=== PATIENT | female | born 1940 | race Caucasian/White ===

== ENCOUNTER 2017-12-13 08:11 | Emergency (ER) | payer MEDICARE, MEDICAID ==
[2017-12-13 08:18] VITALS: RESP 18
[2017-12-13] MEDS ORDERED: Simethicone 80 mg Chewtab PO STA (08:45)
[2017-12-13 09:09] LABS: SQUAMOUS EPITHIAL 1 /hpf (0-5); URINE BILIRUBIN NEGATIVE (NEGATIVE); URINE BLOOD NEGATIVE (NEGATIVE); URINE COLOR Yellow (YELLOW); URINE GLUCOSE (UA) NORMAL (Normal); URINE LEUKOCYTE ESTERASE 1+ Leu/uL (Negative); URINE NITRATE NEGATIVE (NEGATIVE); URINE PROTEIN NEGATIVE (NEGATIVE); URINE UROBILINOGEN NORMAL mg/dL (0.2-1.0)
[2017-12-13 09:10] LABS: BASO % 0.7 % (0.0-2.0); EOS # 0.2 K/uL (0.0-0.7); EOS % 2.8 % (0.0-4.0); HEMOGLOBIN 13.8 g/dL (11.0-16.0); LYMPH # 1.6 K/uL (1.0-4.3); MEAN CELL VOLUME 90.7 fL (81.0-99.0); MEAN CORPUSCULAR HEMOGLOBIN 31.3 pg (27.0-31.0); MEAN CORPUSCULAR HGB CONC 34.5 g/dL (33.0-37.0); MEAN PLATELET VOLUME 8.1 fL (7.2-11.7); MONO # 0.8 K/uL (0.0-0.8); NEUT # 4.3 K/uL (1.8-7.0); NEUT % 62.5 % (50.0-75.0); RBC 4.42 Mil/uL (3.80-5.20); RED CELL DISTRIBUTION WIDTH 13.6 % (11.5-14.5); WHITE BLOOD COUNT 6.8 K/uL (4.8-10.8)
[2017-12-13 09:10] LABS: URINE CLARITY SLHAZY (Clear)
--- NOTE | 2017-12-13 09:15 | C.PDOC ---
History Of Present Illness Patient presents to ED c/o epigastric abdominal pain, bloating and gas pain x 3 days. She has tried taking pepto bismol and mylanta without relief. She denies vomiting/diarrhea, fever, dysuria/hematuria, chest pain, SOB. Patient does admit to constipation, states she had small BM this morning, last good BM was 3 days ago. Time Seen by Provider: 12/13/17 08:16 Chief Complaint (Nursing): Abdominal Pain History Per: Patient History/Exam Limitations: no limitations Onset/Duration Of Symptoms: Days (3) Current Symptoms Are (Timing): Still Present Severity: Mild Location Of Pain/Discomfort: Epigastric Quality Of Discomfort: "Pain" Associated Symptoms: Constipation Past Medical History Reviewed: Historical Data, Nursing Documentation, Vital Signs Vital Signs: Last Vital Signs Temp 98.1 F 12/13/17 11:26 Pulse 84 12/13/17 11:26 Resp 18 12/13/17 11:26 BP 166/74 H 12/13/17 11:26 Pulse Ox 99 12/13/17 11:26 - Medical History PMH: Arthritis, HTN, Hyperlipidemia, Hypothyroidism Surgical History: Cholecystectomy Family History: States: No Known Family Hx - Social History Hx Alcohol Use: No Hx Substance Use: No - Immunization History Hx Tetanus Toxoid Vaccination: No Hx Influenza Vaccination: Yes Hx Pneumococcal Vaccination: No Review Of Systems Except As Marked, All Systems Reviewed And Found Negative. Constitutional: Negative for: Fever, Chills Cardiovascular: Negative for: Chest Pain Respiratory: Negative for: Cough, Shortness of Breath Gastrointestinal: Positive for: Abdominal Pain. Negative for: Nausea, Vomiting , Diarrhea Genitourinary: Negative for: Dysuria, Hematuria Physical Exam - Physical Exam Appears: Well, Non-toxic, No Acute Distress Oral Mucosa: Moist Cardiovascular: Rhythm Regular Respiratory: Normal Breath Sounds, No Rales, No Rhonchi, No Wheezing Gastrointestinal/Abdominal: Bowel Sounds, Soft, Tenderness (mild diffuse TTP, greatest at epigastric area, (-) Beebe's, (-) McBurney's), Other (obese abdomen ) Back: Normal Inspection, No CVA Tenderness Neurological/Psych: Oriented x3 ED Course And Treatment - Laboratory Results Result Diagrams: 12/13/17 09:04 12/13/17 09:04 O2 Sat by Pulse Oximetry: 97 (RA) Pulse Ox Interpretation: Normal Progress Note: Blood work, UA, obstructive series ordered and reviewed. Patient given IV Pepcid, PO simethicone, PO Magnesium citrate. Disposition Counseled Patient/Family Regarding: Studies Performed, Diagnosis, Need For Followup, Rx Given - Disposition Referrals: Kaiden Allred MD [Staff Provider] - Ramesh Murray [Staff Provider] - Disposition: HOME/ ROUTINE Disposition Time: 11:20 Condition: STABLE Additional Instructions: SEGUIMIENTO CON HARDIN MDICO EN 1-2 BAEZA SI LOS SNTOMAS CONTINAN, CONSULTE GASTROENTERLOGO DENTRO DE 1 SEMANA USE MEDICAMENTOS SEGN LO INDICADO KENTRELL ABUNDANTE AGUA E INCREMENTA LA FIBRA EN HARDIN DIETA REGRESE AL NOAM DE EMERGENCIA SI LOS SNTOMAS EMPEORAN Prescriptions: Ciprofloxacin [Cipro] 1 tab PO BID #14 tab Docusate [Colace] 100 mg PO DAILY #30 cap Pantoprazole [Protonix EC Tab] 20 mg PO DAILY #30 ect Simethicone [Anti-Gas] 180 mg PO Q6 PRN #30 capsule PRN Reason: gas Instructions: Urinary Tract Infection in Women (ED), Gas and Bloating (ED) Forms: [facility] (Yi) Print Language: URDU - Clinical Impression Clinical Impression: Gas pain, Epigastric pain, Constipation, UTI (urinary tract infection)
[2017-12-13 09:20] LABS: ALB/GLOB RATIO 1.1 (1.0-2.1); ALT/SGPT 23 U/L (9-52); AST/SGOT 30 U/L (14-36); BLOOD UREA NITROGEN 13 mg/dL (7-17); CALCIUM 9.1 mg/dl (8.6-10.4); GFR AFRICAN-AMERICAN > 60; GFR NON-AFRICAN AMERICAN > 60; LIPASE 185 U/L (23-300)
[2017-12-13] MEDS ORDERED: Magnesium Citrate Oral SOL (300 ml) PO ONE (09:22)
[2017-12-13] MEDS ORDERED: Magnesium Citrate Oral SOL (300 ml) ONE (09:48)
--- NOTE | 2017-12-13 09:50 | RAD ---
PROCEDURE: Radiographs of the chest and abdomen (obstructive series) HISTORY: abd pain, constipation COMPARISON: Chest x-ray performed 10/03/16 TECHNIQUE: AP radiograph of the chest, with upright and supine radiographs of the abdomen. FINDINGS: Examination limited by habitus. CHEST: Cardiomegaly. Biapical pleural thickening. Prominent interstitial markings may be chronic. Mild pulmonary venous congestion is not excluded. No significant pleural effusion or definite pneumothorax identified. ABDOMEN AND PELVIS: Right upper quadrant surgical clips. Nonobstructive bowel gas pattern. No definite free air. Mild constipation. Pelvic calcifications, likely phleboliths. Degenerative changes of the spine. IMPRESSION: Cardiomegaly. Biapical pleural thickening. Prominent interstitial marking may be chronic. Pulmonary venous congestion is not excluded. Correlate clinically. Mild constipation. Right upper quadrant surgical clips.
[2017-12-13 11:27] VITALS: BP 166/74; PULSE 84; TEMP 98.1
[2017-12-13 13:59] VITALS: O2SAT 97
== END 2017-12-13 11:32 | disposition home or self-care (01) ==
LOC: C.ER 08:11
DX: K59.00 Constipation, unspecified (principal); N39.0 Urinary tract infection, site not specified; R10.13 Epigastric pain; R14.1 Gas pain

== ENCOUNTER 2017-12-25 09:51 | Emergency (ER) | payer MEDICARE, MEDICAID ==
--- NOTE | 2017-12-25 10:59 | C.PDOC ---
History Of Present Illness 77 yr old female presents to the ER for evaluation of abdominal pain for the past 5 days, associated with nausea. Patient denies fever, chills, chest pain, SOB, vomiting, diarrhea, dysuria or back pain. Time Seen by Provider: 12/25/17 10:15 Chief Complaint (Nursing): Abdominal Pain History Per: Patient History/Exam Limitations: no limitations Onset/Duration Of Symptoms: Days (5) Past Medical History Reviewed: Historical Data, Nursing Documentation, Vital Signs Vital Signs: Last Vital Signs Temp 97.6 F 12/25/17 10:30 Pulse 66 12/25/17 13:50 Resp 18 12/25/17 13:50 BP 169/79 H 12/25/17 13:50 Pulse Ox 96 12/25/17 14:55 - Medical History PMH: Arthritis, HTN, Hyperlipidemia, Hypothyroidism Surgical History: Cholecystectomy Family History: States: No Known Family Hx - Social History Hx Alcohol Use: No Hx Substance Use: No - Immunization History Hx Tetanus Toxoid Vaccination: No Hx Influenza Vaccination: Yes Hx Pneumococcal Vaccination: No Review Of Systems Except As Marked, All Systems Reviewed And Found Negative. Cardiovascular: Negative for: Chest Pain Gastrointestinal: Positive for: Nausea, Abdominal Pain. Negative for: Vomiting , Diarrhea Genitourinary: Negative for: Dysuria Musculoskeletal: Negative for: Back Pain Physical Exam - Physical Exam Appears: Non-toxic, No Acute Distress Skin: Warm, Dry, No Rash Head: Atraumatic, Normacephalic Eye(s): bilateral: Normal Inspection, PERRL, EOMI Oral Mucosa: Moist Cardiovascular: Rhythm Regular, No Murmur Respiratory: Normal Breath Sounds, No Rales, No Rhonchi, No Stridor, No Wheezing Gastrointestinal/Abdominal: Soft, Tenderness (left lateral mid quaderant tenderness), No Mass, No Guarding, No Rebound Extremity: Normal ROM, No Swelling ED Course And Treatment - Laboratory Results Result Diagrams: 12/25/17 11:33 12/25/17 11:33 O2 Sat by Pulse Oximetry: 96 (RA) Pulse Ox Interpretation: Normal - CT Scan/US CT - Abd & Pelvis Other Rad Studies (CT/US): Read By Radiologist, Radiology Report Reviewed CT/US Interpretation: PROCEDURE: CT scan abdomen pelvis dated 12/25/2017. HISTORY: Abdominal pain. COMPARISON: None. TECHNIQUE: Contiguous helical/ transaxial images both dated of the abdomen and pelvis performed following intravenous injection of approximately 100 cc Visipaque 320. Coronal and Sagittal reformats generated. Radiation dose: Total exam DLP = 1147.55 mGy- cm. This CT exam was performed using one or more of the following dose reduction techniques: Automated exposure control, adjustment of the mA and/or kV according to patient size, and/or use of iterative reconstruction technique. FINDINGS: LOWER THORAX: Mild passive/dependent type atelectasis both posterior lower lung reece. No focal consolidation effusion or basilar pneumothorax. Heart size is mildly enlarged. . Tiny hiatal hernia. LIVER: Liver exhibits normal size. Mild diffuse fatty hepatic infiltration. Portal and splenic veins are patent. GALLBLADDER AND BILE DUCTS: The gallbladder has been surgically resected with metallic clips in gallbladder fossa. PANCREAS: Pancreas is somewhat atrophic and fatty replaced. SPLEEN: Unremarkable. No splenomegaly. ADRENALS: Unremarkable. KIDNEYS AND URETERS: Kidneys demonstrate relatively symmetric size. No evidence of nephrolithiasis or hydronephrosis. BLADDER: Urinary bladder incompletely distended. No evidence of intraluminal urinary bladder calculi. REPRODUCTIVE: Uterus appears grossly unremarkable. APPENDIX: What is felt to represent a normal but short appendix best seen on axial image number [id number]. BOWEL: Evaluation of the bowel is limited due to the lack of oral contrast material. Stomach is incompletely distended. There appears to be submucosal fat deposition within the gastric wall. Visualized loops of small bowel exhibit normal contour and caliber. No evidence of acute mechanical small bowel obstruction. No definitive evidence of mural wall thickening of the colon. The. PERITONEUM: Unremarkable. No fluid collection. No free air. Small fat containing umbilical hernia. . LYMPH NODES: Unremarkable. No enlarged lymph nodes. VASCULATURE: Partially calcified atherosclerotic plaque seen along the abdominal aorta and proximal iliac arteries. . Plaque changes on in follow-up the origins of the celiac axis and SMA. BONES: Multilevel degenerative spondylosis of the lower thoracic and lumbar spine. No acute compression fractures. OTHER FINDINGS: None. IMPRESSION: No acute intra abdominal pathology. Mild fatty hepatic infiltration. Status post cholecystectomy. See above discussion for additional details and findings. Medical Decision Making Medical Decision Making: IMPRESSION: Abdominal pain PLAN: * CT - Abd & Pelvis * CXR * EKG * Troponin * CBC * CMP * BNP * Protonix IVP * Toradol IVP * Zofran IVP NOTE: * Patient reports abdominal pain resolved. * Patient advised to follow up with Dr. Pacheco for further follow up. Disposition Counseled Patient/Family Regarding: Studies Performed, Diagnosis, Need For Followup, Rx Given - Disposition Referrals: Last Pacheco MD [Staff Provider] - [facility] [Outside] Disposition: HOME/ ROUTINE Disposition Time: 14:52 Condition: IMPROVED Additional Instructions: follow u with Dr. Pacheco in 2 days call to make an appointment take medications as needed return to ER if symptoms worsens or progress Prescriptions: Famotidine [Pepcid] 20 mg PO BID #20 tab Naproxen [Naprosyn] 500 mg PO BID PRN #16 tab PRN Reason: Pain, Moderate (4-7) Ondansetron ODT [Zofran ODT] 4 mg PO TID PRN #12 odt PRN Reason: Nausea/Vomiting Instructions: Abdominal Pain (ED) Forms: [facility] (Romanian), Gen Discharge Inst Korean, [employer] (Korean) Print Language: BENGALI - Clinical Impression Clinical Impression: Abdominal pain - Scribe Statement The provider has reviewed the documentation as recorded by the Lola Paredes Provider Attestation: All medical record entries made by the Lola were at my direction and personally dictated by me. I have reviewed the chart and agree that the record accurately reflects my personal performance of the history, physical exam, medical decision making, and the department course for this patient. I have also personally directed, reviewed, and agree with the discharge instructions and disposition.
[2017-12-25 11:39] LABS: BASO % 0.7 % (0.0-2.0); EOS # 0.1 K/uL (0.0-0.7); EOS % 1.2 % (0.0-4.0); HEMOGLOBIN 13.8 g/dL (11.0-16.0); LYMPH # 1.4 K/uL (1.0-4.3); MEAN CELL VOLUME 90.2 fL (81.0-99.0); MEAN CORPUSCULAR HEMOGLOBIN 31.5 pg (27.0-31.0); MEAN CORPUSCULAR HGB CONC 34.9 g/dL (33.0-37.0); MEAN PLATELET VOLUME 7.8 fL (7.2-11.7); MONO # 0.6 K/uL (0.0-0.8); MONO % 10.2 % (0.0-10.0); NEUT # 3.5 K/uL (1.8-7.0); NEUT % 62.9 % (50.0-75.0); RBC 4.38 Mil/uL (3.80-5.20); RED CELL DISTRIBUTION WIDTH 13.6 % (11.5-14.5); WHITE BLOOD COUNT 5.6 K/uL (4.8-10.8)
[2017-12-25 11:45] LABS: SQUAMOUS EPITHIAL < 1 /hpf (0-5); URINE BACTERIA RARE (<OCC); URINE BILIRUBIN NEGATIVE (NEGATIVE); URINE BLOOD NEGATIVE (NEGATIVE); URINE CLARITY Clear (Clear); URINE COLOR Yellow (YELLOW); URINE GLUCOSE (UA) NORMAL (Normal); URINE LEUKOCYTE ESTERASE NEG Leu/uL (Negative); URINE NITRATE NEGATIVE (NEGATIVE); URINE PROTEIN NEGATIVE (NEGATIVE); URINE UROBILINOGEN NORMAL mg/dL (0.2-1.0)
[2017-12-25 11:51] LABS: ALB/GLOB RATIO 1.1 (1.0-2.1); ALBUMIN 4.1 g/dL (3.5-5.0); ALT/SGPT 23 U/L (9-52); AST/SGOT 31 U/L (14-36); BLOOD UREA NITROGEN 12 mg/dL (7-17); CALCIUM 9.8 mg/dl (8.6-10.4); GFR AFRICAN-AMERICAN > 60; GFR NON-AFRICAN AMERICAN > 60; LIPASE 141 U/L (23-300)
[2017-12-25 12:05] LABS: B-TYPE NATRIURETIC PEPTIDE 134 pg/mL (0-900)
[2017-12-25] MEDS ORDERED: Iodixanol 320 MG/ML 100 ML BOTTLE IV ONE (12:17)
[2017-12-25 13:51] VITALS: RESP 18
--- NOTE | 2017-12-25 14:36 | CT ---
PROCEDURE: CT scan abdomen pelvis dated 12/25/2017. HISTORY: Abdominal pain COMPARISON: None. TECHNIQUE: Contiguous helical/transaxial images both dated of the abdomen and pelvis performed following intravenous injection of approximately 100 cc Visipaque 320. Coronal and Sagittal reformats generated. Radiation dose: Total exam DLP = 1147.55 mGy-cm. This CT exam was performed using one or more of the following dose reduction techniques: Automated exposure control, adjustment of the mA and/or kV according to patient size, and/or use of iterative reconstruction technique. FINDINGS: LOWER THORAX: Mild passive/dependent type atelectasis both posterior lower lung reece. No focal consolidation effusion or basilar pneumothorax. Heart size is mildly enlarged. . Tiny hiatal hernia. LIVER: Liver exhibits normal size. Mild diffuse fatty hepatic infiltration. Portal and splenic veins are patent. GALLBLADDER AND BILE DUCTS: The gallbladder has been surgically resected with metallic clips in gallbladder fossa. PANCREAS: Pancreas is somewhat atrophic and fatty replaced. SPLEEN: Unremarkable. No splenomegaly. ADRENALS: Unremarkable. KIDNEYS AND URETERS: Kidneys demonstrate relatively symmetric size. No evidence of nephrolithiasis or hydronephrosis. BLADDER: Urinary bladder incompletely distended. No evidence of intraluminal urinary bladder calculi. REPRODUCTIVE: Uterus appears grossly unremarkable. APPENDIX: What is felt to represent a normal but short appendix best seen on axial image number [id number]. BOWEL: Evaluation of the bowel is limited due to the lack of oral contrast material. Stomach is incompletely distended. There appears to be submucosal fat deposition within the gastric wall. Visualized loops of small bowel exhibit normal contour and caliber. No evidence of acute mechanical small bowel obstruction. No definitive evidence of mural wall thickening of the colon. The PERITONEUM: Unremarkable. No fluid collection. No free air. Small fat containing umbilical hernia. . LYMPH NODES: Unremarkable. No enlarged lymph nodes. VASCULATURE: Partially calcified atherosclerotic plaque seen along the abdominal aorta and proximal iliac arteries. . Plaque changes on in follow-up the origins of the celiac axis and SMA. BONES: Multilevel degenerative spondylosis of the lower thoracic and lumbar spine. No acute compression fractures. OTHER FINDINGS: None. IMPRESSION: No acute intra abdominal pathology. Mild fatty hepatic infiltration. Status post cholecystectomy. See above discussion for additional details and findings.
[2017-12-25 15:34] VITALS: BP 158/68; PULSE 76; TEMP 97.9; O2SAT 97
--- NOTE | 2017-12-25 16:01 | RAD ---
PROCEDURE: CHEST RADIOGRAPH, 1 VIEW HISTORY: abd pain COMPARISON: 10/03/2016 FINDINGS: LUNGS: Possible left inferolateral pleural effusion. Lung volumes slightly decreased. No dense consolidation. PLEURA: No pneumothorax or pleural fluid seen. CARDIOVASCULAR: Cardiomegaly. Mild central pulmonary venous congestion suspect possibly chronic OSSEOUS STRUCTURES: Thoracic spondylosis. VISUALIZED UPPER ABDOMEN: Normal. OTHER FINDINGS: None. IMPRESSION: Radiographic appearance is fairly similar. Small left inferolateral pleural effusion and/or pleural thickening probable. Cardiomegaly and mild central pulmonary venous congestion and possibly chronic noted
== END 2017-12-25 15:44 | disposition home or self-care (01) ==
LOC: C.ER 09:51
DX: R10.9 Unspecified abdominal pain (principal); I10 Essential (primary) hypertension; E78.5 Hyperlipidemia, unspecified; E03.9 Hypothyroidism, unspecified
CPT/HCPCS: 71045; 74177; 80053; 81001; 83690; 83880; 84484; 85025; 96374; 96375; 99285; C9113; J1885; J2405; Q9967

== ENCOUNTER 2019-03-06 20:38 | Inpatient (IN) | payer MEDICARE, MEDICAID ==
--- NOTE | 2019-03-06 20:59 | C.PDOC ---
History Of Present Illness 78-year-old female presents to the emergency department with complaints of epigastric and reflux pain. Patient states that the pain is sharp and radiates up to her mouth, persistent since yesterday. Patient denies fever, chest pain s hortness of breath but admits to decreased appetite. Chief Complaint (Nursing): Abdominal Pain History Per: Patient History/Exam Limitations: no limitations Onset/Duration Of Symptoms: Days (1) Current Symptoms Are (Timing): Still Present Location Of Pain/Discomfort: Epigastric, Other (reflux) Radiation Of Pain To:: Other (mouth) Quality Of Discomfort: Sharp, "Pain" Associated Symptoms: Loss Of Appetite. denies: Fever, Chest Pain, Other (SOB) Past Medical History Reviewed: Historical Data, Nursing Documentation, Vital Signs Vital Signs: Last Vital Signs Temp 97.8 F 03/06/19 20:44 Pulse 100 H 03/06/19 20:44 Resp 20 03/06/19 20:44 BP 158/89 H 03/06/19 20:44 Pulse Ox 97 03/06/19 20:44 - Medical History PMH: Arthritis, HTN, Hyperlipidemia, Hypothyroidism Surgical History: Cholecystectomy Family History: States: No Known Family Hx - Social History Hx Alcohol Use: No Hx Substance Use: No - Immunization History Hx Tetanus Toxoid Vaccination: No Hx Influenza Vaccination: Yes Hx Pneumococcal Vaccination: No Review Of Systems Except As Marked, All Systems Reviewed And Found Negative. Constitutional: Negative for: Fever, Chills Cardiovascular: Negative for: Chest Pain Respiratory: Negative for: Cough, Shortness of Breath Gastrointestinal: Positive for: Other (decreased appetite). Negative for: Nausea, Vomiting, Diarrhea Musculoskeletal: Negative for: Neck Pain Neurological: Negative for: Weakness, Numbness Physical Exam - Physical Exam Appears: Well, Non-toxic, No Acute Distress Skin: Normal Color, Warm, Dry Head: Atraumatic, Normacephalic Eye(s): bilateral: Normal Inspection, PERRL, EOMI Nose: Normal Oral Mucosa: Moist Neck: Normal, Supple Chest: Symmetrical, No Tenderness Cardiovascular: Rhythm Regular, No Murmur Respiratory: Normal Breath Sounds, No Rales, No Rhonchi, No Wheezing Gastrointestinal/Abdominal: Soft, Tenderness (epigastric tenderness), No Guarding, No Rebound Extremity: Normal ROM Neurological/Psych: Oriented x3, Normal Speech, Normal Cognition ED Course And Treatment - Laboratory Results Result Diagrams: 03/06/19 21:42 03/06/19 21:42 Interpretation Of ECG: Normal sinus rhythm at 87bpm. O2 Sat by Pulse Oximetry: 97 (RA) Pulse Ox Interpretation: Normal - CT Scan/US CT Abdomen and Pelvis Other Rad Studies (CT/US): Read By Radiologist, Radiology Report Reviewed CT/US Interpretation: IMPRESSION: 1. Evidence of gastritis. 2. Status post cholecystectomy. 3. Multilevel degenerative disc disease. Medical Decision Making Medical Decision Making: Plan: CT Abdomen and Pelvis Chemistry CBC Atropine 1tab PO Lidocaine Maalox 30ml PO Pepcid 20mg IVP NaCl IV Fluids Zofran 4mg IVP Urinalysis Spoke to Dr. Dia to review case, including Na of 121. Patient is to admitted to general medical floor for hydration and re-assessment. Disposition - Disposition Disposition: HOSPITALIZED Disposition Time: 20:10 Condition: STABLE - Clinical Impression Clinical Impression: Hyponatremia, Gastritis, Dehydration - Scribe Statement The provider has reviewed the documentation as recorded by the Scribe (Giovanny Shook) Provider Attestation: All medical record entries made by the Scribe were at my direction and personally dictated by me. I have reviewed the chart and agree that the record accurately reflects my personal performance of the history, physical exam, medical decision making, and the department course for this patient. I have also personally directed, reviewed, and agree with the discharge instructions and disposition.
[2019-03-06] MEDS ORDERED: Belladonna-Phenobarbital PO STA (21:16)
[2019-03-06] MEDS ORDERED: Aluminum Hydroxide/Magnesium Hydroxide Susp (30 mL) PO STA (21:16)
[2019-03-06] MEDS ORDERED: Belladonna-Phenobarbital ONE (21:25)
[2019-03-06] MEDS ORDERED: Sodium Chloride 0.9% 1,000 ML ONE (21:25)
[2019-03-06] MEDS ORDERED: Aluminum Hydroxide/Magnesium Hydroxide Susp (30 mL) ONE (21:26)
[2019-03-06] MEDS ORDERED: Sodium Chloride 0.9% 1,000 ML IV SCH (21:30)
[2019-03-06 21:46] LABS: BASO # 0.1 K/uL (0.0-0.2); BASO % 1.2 % (0.0-2.0); EOS % 0.2 % (0.0-4.0); HEMOGLOBIN 14.3 g/dL (11.0-16.0); LYMPH # 1.3 K/uL (1.0-4.3); MEAN CELL VOLUME 91.4 fL (81.0-99.0); MEAN CORPUSCULAR HEMOGLOBIN 31.6 pg (27.0-31.0); MEAN CORPUSCULAR HGB CONC 34.5 g/dL (33.0-37.0); MEAN PLATELET VOLUME 7.7 fL (7.2-11.7); MONO # 0.4 K/uL (0.0-0.8); MONO % 4.4 % (0.0-10.0); NEUT # 7.6 K/uL (1.8-7.0); NEUT % 80.2 % (50.0-75.0); NRBC % 0.1 % (0.0-2.0); RBC 4.53 Mil/uL (3.80-5.20); RED CELL DISTRIBUTION WIDTH 14.3 % (11.5-14.5); WHITE BLOOD COUNT 9.5 K/uL (4.8-10.8)
[2019-03-06 21:58] LABS: BLOOD UREA NITROGEN 16 mg/dL (7-17); CALCIUM 9.9 mg/dl (8.6-10.4); GFR NON-AFRICAN AMERICAN > 60; LIPASE 94 U/L (23-300)
[2019-03-06 22:00] LABS: ALB/GLOB RATIO 1.3 (1.0-2.1); ALBUMIN 4.4 g/dL (3.5-5.0); ALT/SGPT 7 U/L (9-52); AST/SGOT 46 U/L (14-36)
[2019-03-06 22:42] LABS: OSMOLALITY,URINE 562 mosm/kg (300-1000)
[2019-03-06] MEDS ORDERED: Iodixanol 320 MG/ML 100 ML BOTTLE IV ONE (23:07)
[2019-03-07] MEDS: Sodium Chloride 0.9% 1,000 ML IV SCH ×3 (06:58→20:52)
--- NOTE | 2019-03-07 07:06 | CT ---
Date of service: 03/06/2019 PROCEDURE: CT Abdomen and Pelvis with contrast HISTORY: upper abdominal pain COMPARISON: Comparison is made with 12/25/2017 TECHNIQUE: Contrast dose: 100 mL of Visipaque 320 intravenously. Axial and reformatted coronal and sagittal CT images of the abdomen and pelvis were obtained after IV contrast administration. Radiation dose: Total exam DLP = 1140.3 mGy-cm. This CT exam was performed using one or more of the following dose reduction techniques: Automated exposure control, adjustment of the mA and/or kV according to patient size, and/or use of iterative reconstruction technique. FINDINGS: LOWER THORAX: No evidence of acute pathology. Cardiomegaly. No evidence of pleural effusion. LIVER: No significant interval changes in the liver noted. GALLBLADDER AND BILE DUCTS: Status post cholecystectomy PANCREAS: Unremarkable. No gross lesion or ductal dilatation. SPLEEN: Unremarkable. ADRENALS: Unremarkable. No mass. KIDNEYS AND URETERS: Unremarkable. No hydronephrosis. No solid mass. VASCULATURE: Unremarkable. No aortic aneurysm. Foci of atherosclerotic calcification and mural thickening are noted. BOWEL: Suspicious for gastric wall thickening. Correlate clinically for gastritis. No obstruction. No gross mural thickening. APPENDIX: No evidence of appendicitis. PERITONEUM: Unremarkable. No free fluid. No free air. LYMPH NODES: Unremarkable. No enlarged lymph nodes. BLADDER: Unremarkable. REPRODUCTIVE: Unremarkable. BONES: No acute fracture. Moderate to severe degenerative changes. OTHER FINDINGS: None. IMPRESSION: Suspicious for gastric wall thickening and gastritis. Please correlate clinically. Otherwise no significant interval changes noted since the prior study. Preliminary report was submitted by [facility] Radiology contains concordant findings.
[2019-03-07] MEDS: Enoxaparin 40 mg Syringe SC SCH (09:28)
[2019-03-07 12:08] LABS: INR 1.1; PROTHROMBIN TIME 11.6 SECONDS (9.7-12.2)
--- NOTE | 2019-03-08 01:32 | CP.PCM.HP ---
Present on Admission - Present on Admission Any Indicators Present on Admission: No Past Patient History - Past Medical History & Family History Past Medical History?: Yes - Past Social History Smoking Status: Never Smoked - CARDIAC Hx Hypertension: Yes - ENDOCRINE/METABOLIC Hx Hypothyroidism: Yes - MUSCULOSKELETAL/RHEUMATOLOGICAL Hx Arthritis: Yes - PSYCHIATRIC Hx Substance Use: No - SURGICAL HISTORY Hx Cholecystectomy: Yes - ANESTHESIA Hx Anesthesia: Yes Hx Anesthesia Reactions: No Hx Malignant Hyperthermia: No Meds Allergies/Adverse Reactions: Allergies Allergy/AdvReac Type Severity Reaction Status Date / Time No Known Allergies Allergy Verified 12/25/17 10:09 Results - Vital Signs Recent Vital Signs: Last Vital Signs Temp 97.8 F 03/07/19 16:00 Pulse 84 03/07/19 16:00 Resp 20 03/07/19 16:00 BP 170/90 H 03/07/19 16:00 Pulse Ox 95 03/07/19 16:00 - Labs Result Diagrams: 03/06/19 21:42 03/06/19 21:42 Labs: Laboratory Results - last 24 hr 03/07/19 03/07/19 11:51 11:51 PT 11.6 INR 1.1 APTT 46 H Carcinoembryonic Ag 1.9 CA 19-9 Antigen 36.9 CA 125 Antigen 7.1
--- NOTE | 2019-03-08 04:45 | HP ---
CHIEF COMPLAINT: Epigastric pain. HISTORY OF PRESENT ILLNESS: This is a 78-year-old female with history of hypertension, hyperlipidemia. She is on antihypertensives. She is compliant with diet, medication, and followup. She started her day before the admission epigastric pain radiating to the back associated with nausea, generalized weakness, dizziness. The patient denies any dysuria, hematuria, polyuria. She denies any rectal bleeding. No mucus. No blood in the stool. The patient denied any history of fever, chills. The patient denies any shortness of breath. There is no history of joint pain, leg pain. She denies any tingling, numbness, or paresthesias. PAST MEDICAL HISTORY: Osteoarthritis, hypertension, hyperlipidemia, hypothyroidism. CURRENT MEDICATIONS: HCTZ 20/25 mg, Tramadol, Protonix, Levoxyl. SOCIAL HISTORY: She is a nonsmoker and non-EtOH user. FAMILY HISTORY: Negative for colon cancer. PHYSICAL EXAMINATION: GENERAL: An elderly female, in distress with abdominal pain, nausea. VITAL SIGNS: Blood pressure is 156/78, pulse 80, respiratory rate 20, temperature 97.3. SKIN: Senile turgor. No bruises. No purpura. No petechia. HEENT: Atraumatic, normocephalic. Negative pallor. NECK: Supple. No JVD. CHEST: Chest wall, bilateral symmetrical expansion. LUNGS: Clear. CARDIOVASCULAR SYSTEM: S1 and S2, regular. ABDOMEN: Soft, nontender. There is epigastric tenderness. Bowel sounds are present. ASSESSMENT: 1. Acute gastritis. There is a CT evidence of gastritis. 2. Dehydration with low sodium. Most likely her low sodium is a combination of diuretic and her antihypertensive and also her sodium is down because of that. 3. Poorly controlled diabetes. PLAN: Admit. Detailed orders are written, seen and examined. Ruddy Dia MD
[2019-03-08 06:53] LABS: HEMOGLOBIN 13.7 g/dL (11.0-16.0); MEAN CELL VOLUME 91.9 fL (81.0-99.0); MEAN CORPUSCULAR HGB CONC 34.8 g/dL (33.0-37.0); MEAN PLATELET VOLUME 7.5 fL (7.2-11.7); RBC 4.28 Mil/uL (3.80-5.20); RED CELL DISTRIBUTION WIDTH 14.4 % (11.5-14.5); WHITE BLOOD COUNT 6.5 K/uL (4.8-10.8)
[2019-03-08 07:17] LABS: BLOOD UREA NITROGEN 8 mg/dL (7-17); CALCIUM 9.5 mg/dl (8.6-10.4); GFR NON-AFRICAN AMERICAN > 60
--- NOTE | 2019-03-08 07:50 | CON ---
DATE: 03/07/2019 I was called for GI consultation by the admitting MD. The patient was seen and fully examined on 03/07/2019 as requested by the primary MD. The entire chart is reviewed including, but not limited to most recent lab and radiology study results, current and previous medication list, current and previous medical events. Case discussed with the staff at length. HISTORY OF PRESENT ILLNESS: This 78-year-old female was admitted to hospital through the emergency room with a main complaint of abdominal pain, mainly in the mid epigastric and mid abdominal line with dyspepsia and nausea with less oral intake for the last few days prior to her admission, but no reported actual chest pain, palpitation, chills, or fever. No reported shortness of breath. The patient also reported loss of appetite with less oral intake since. PAST MEDICAL HISTORY: Including, but not limited to, 1. Hypertension. 2. Hypothyroidism. 3. Hyperlipidemia. 4. Osteoarthritis. 5. Peptic ulcer disease. 6. Status post cholecystectomy. FAMILY HISTORY: Noncontributory. SOCIAL HISTORY: No reported recent history of cigarette smoking or alcohol intake. CURRENT MEDICATIONS: Post-admission medication lists were reviewed. ALLERGY TO MEDICATION: UNCLEAR. After being admitted to the hospital, the patient was found to have initially normal CBC with blood glucose level elevated to 136. Sodium 121 of unclear etiology. Radiology study results showed evidence of gastritis with status post cholecystectomy with multiple degenerative disk disease. PHYSICAL EXAMINATION: GENERAL: A 78-year-old female, awake, alert, and oriented. VITAL SIGNS: Afebrile with pulse of 96, respiratory rate 20-22, blood pressure 154/82. HEENT: Showed dry oral mucous membranes. Nonicteric sclerae. LUNGS: Few scattered crepitation. Decreased air entry at bases. HEART: Positive S1 and S2. ABDOMEN: Soft with slight distention and diffuse tenderness present in the mid epigastric and mid abdominal line. No mass or organomegaly. No rebound tenderness or guarding. EXTREMITIES: Without significant edema, clubbing, or cyanosis. NEUROLOGIC: No reported new neurological deficits, sensory or motor. IMPRESSION: 1. Re-exacerbation of peptic ulcer disease. Rule out gastric versus duodenal ulcer. 2. To rule out small common bile duct stone, post cholecystectomy. 3. To rule out an acute episode of pancreatitis. 4. Multiple past medical history as reported above. 5. Electrolyte imbalance with hyponatremia and episodes of hyperglycemia which could contribute to the patient's symptoms in part. 6. Rule out occult gastrointestinal malignancy. SUGGESTIONS: 1. Agree with your plan. 2. Serum lipase, amylase level. Reglan IV. Proton pump inhibitors IV. Antireflux measures. 3. Cancer markers including CEA. 4. Endoscopic evaluation of the upper GI tract when the patient is more stable clinically. 5. Further recommendation to follow. Thank you for letting me to participate in your patient's case management. Ramesh Cramer MD
[2019-03-08] MEDS: Sodium Chloride 0.9% 1,000 ML IV SCH ×2 (08:26→21:10)
[2019-03-08] MEDS: Enoxaparin 40 mg Syringe SC SCH (09:18)
[2019-03-08] MEDS ORDERED: Lactated Ringer's 1,000 ML IV ONE (11:25)
[2019-03-08] MEDS ORDERED: Propofol 10 mg/ml Inj (20 ML) ONE (11:28)
[2019-03-08] MEDS: Sucralfate 1 gm/10 ml Oral Susp UD PO SCH ×2 (12:55→17:14)
[2019-03-08] MEDS ORDERED: Peg-Electrolyte Oral Soln 4L (Golytely) PO ONE (13:00)
[2019-03-08] MEDS ORDERED: Bisacodyl 5mg EC Tab PO ONE (17:00)
--- NOTE | 2019-03-08 21:41 | CP.PCM.PN ---
Subjective - Date & Time of Evaluation Date of Evaluation: 03/08/19 Time of Evaluation: 07:40 - Subjective Subjective: dictated Objective - Vital Signs/Intake and Output Vital Signs (last 24 hours): Temp Pulse Resp BP Pulse Ox 97.8 F 84 20 165/94 H 97 03/08/19 16:00 03/08/19 16:00 03/08/19 16:00 03/08/19 16:00 03/08/19 16:00 Intake and Output: 03/08/19 03/09/19 18:59 06:59 Intake Total 1100 Balance 1100 - Medications Medications: Current Medications Enoxaparin Sodium (Lovenox) 40 mg SC DAILY [facility] Last Admin: 03/08/19 09:18 Dose: Not Given Sodium Chloride (Sodium Chloride 0.9%) 1,000 mls @ 80 mls/hr IV .[id number] [facility] Last Admin: 03/08/19 08:26 Dose: Not Given Levothyroxine Sodium (Levothroid) 137 mcg PO DAILY@0630 [facility] Last Admin: 03/08/19 06:49 Dose: 137 mcg Losartan Potassium (Cozaar) 100 mg PO DAILY [facility] Last Admin: 03/08/19 09:16 Dose: 100 mg Metoclopramide HCl (Reglan) 5 mg IVP Q6H [facility] Last Admin: 03/08/19 17:15 Dose: 5 mg Morphine Sulfate (Morphine) 2 mg SC Q4 PRN PRN Reason: Pain, moderate (4-7) Ondansetron HCl (Zofran Inj) 4 mg IVP Q4 PRN PRN Reason: Nausea/Vomiting Pantoprazole Sodium (Protonix Inj) 40 mg IVP DAILY [facility] Last Admin: 03/08/19 09:17 Dose: 40 mg Pneumococcal Polyvalent Vaccine (Pneumovax 23 Vaccine) 0.5 ml IM .ONCE ONE Stop: 03/09/19 10:01 Sucralfate (Carafate Oral Susp) 1 gm PO BID [facility] Last Admin: 03/08/19 17:14 Dose: 1 gm - Labs Labs: 03/08/19 06:44 03/08/19 06:44 PT 11.6 SECONDS (9.7-12.2) 03/07/19 11:51 INR 1.1 03/07/19 11:51 APTT 46 SECONDS (21-34) H 03/07/19 11:51
--- NOTE | 2019-03-09 00:49 | PN ---
DATE: 03/08/2019 SUBJECTIVE: The patient is feeling better. She is with decreased headache. No nausea or vomiting. Her sodium is going up. No abdominal pain. PHYSICAL EXAMINATION: VITAL SIGNS: Blood pressure 165/94, pulse 84, respiratory rate 20, and temperature 99.8. LUNGS: Clear. CARDIOVASCULAR SYSTEM: S1 and S2, regular. ABDOMEN: Soft. ASSESSMENT: 1. Dehydration, hyponatremia. 2. Gastritis. 3. Hypertension. PLAN: Continue IV fluids. Bring sodium up. Ruddy Dia MD
[2019-03-09 06:45] LABS: ALB/GLOB RATIO 1.6 (1.0-2.1); ALBUMIN 3.8 g/dL (3.5-5.0); ALT/SGPT 12 U/L (9-52); AST/SGOT 36 U/L (14-36); BLOOD UREA NITROGEN 9 mg/dL (7-17); GFR NON-AFRICAN AMERICAN > 60
[2019-03-09] MEDS: Sodium Chloride 0.9% 1,000 ML IV SCH ×2 (08:55→21:17)
[2019-03-09] MEDS ORDERED: Pneumococcal 23-Valent Vaccine IM ONE (10:00)
[2019-03-09] MEDS: Sucralfate 1 gm/10 ml Oral Susp UD PO SCH ×2 (10:32→17:23)
[2019-03-09] MEDS: Enoxaparin 40 mg Syringe SC SCH (10:33)
[2019-03-09] MEDS ORDERED: Propofol 10 mg/ml Inj (20 ML) ONE (12:38)
[2019-03-09] MEDS ORDERED: Lactated Ringer's 500 ML IV SCH (12:45)
--- NOTE | 2019-03-09 21:45 | CP.PCM.PN ---
Subjective - Date & Time of Evaluation Date of Evaluation: 03/09/19 Time of Evaluation: 08:40 - Subjective Subjective: dict Objective - Vital Signs/Intake and Output Vital Signs (last 24 hours): Temp Pulse Resp BP Pulse Ox 98.6 F 86 20 152/80 H 96 03/09/19 15:06 03/09/19 15:06 03/09/19 15:06 03/09/19 15:06 03/09/19 15:06 Intake and Output: 03/09/19 03/10/19 18:59 06:59 Intake Total 1090 Balance 1090 - Medications Medications: Current Medications Enoxaparin Sodium (Lovenox) 40 mg SC DAILY [facility] Last Admin: 03/09/19 10:33 Dose: Not Given Sodium Chloride (Sodium Chloride 0.9%) 1,000 mls @ 80 mls/hr IV .[id number] [facility] Last Admin: 03/09/19 21:17 Dose: 80 mls/hr Levothyroxine Sodium (Levothroid) 137 mcg PO DAILY@0630 [facility] Last Admin: 03/09/19 05:29 Dose: 137 mcg Losartan Potassium (Cozaar) 100 mg PO DAILY [facility] Last Admin: 03/09/19 10:31 Dose: 100 mg Metoclopramide HCl (Reglan) 5 mg IVP Q6H [facility] Last Admin: 03/09/19 17:23 Dose: 5 mg Morphine Sulfate (Morphine) 2 mg SC Q4 PRN PRN Reason: Pain, moderate (4-7) Ondansetron HCl (Zofran Inj) 4 mg IVP Q4 PRN PRN Reason: Nausea/Vomiting Pantoprazole Sodium (Protonix Inj) 40 mg IVP DAILY [facility] Last Admin: 03/09/19 10:30 Dose: 40 mg Sucralfate (Carafate Oral Susp) 1 gm PO BID [facility] Last Admin: 03/09/19 17:23 Dose: 1 gm - Labs Labs: 03/08/19 06:44 03/09/19 06:15 PT 11.6 SECONDS (9.7-12.2) 03/07/19 11:51 INR 1.1 03/07/19 11:51 APTT 46 SECONDS (21-34) H 03/07/19 11:51
--- NOTE | 2019-03-10 03:17 | PN ---
DATE: 03/09/2019 SUBJECTIVE: Camilla Hector is status post colonoscopy. Colonoscopy showed a mass in the ascending colon. Biopsies are pending. The patient has no abdominal pain. Sodium is low. No fever, no chills. The patient is on IV fluids. EGD showed hiatal hernia. She denies any headache or dizziness. PHYSICAL EXAMINATION: GENERAL: Blood pressure 152/80, pulse 66, respiratory rate 20, temperature 98.6. LUNGS: Clear. CARDIOVASCULAR SYSTEM: S1 and S2, regular. ABDOMEN: Soft. ASSESSMENT: 1. Colon mass. 2. Hyponatremia. 3. Hypertension. PLAN: Continue IV fluids. GI evaluation. Possible surgical evaluation. Ruddy Dia MD
[2019-03-10] MEDS: Sucralfate 1 gm/10 ml Oral Susp UD PO SCH ×2 (10:14→17:37)
[2019-03-10] MEDS: Enoxaparin 40 mg Syringe SC SCH (10:20)
--- NOTE | 2019-03-10 16:27 | CP.PCM.CON ---
History of Present Illness - History of Present Illness History of Present Illness: General Surgery Consult for Dr. 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 GI was consulted and patient went for EGD on 03/08 which revealed gastritis (see full report) and then went for colonoscopy on 03/09. On colonoscopy, a 2x2x2 mm mass in the ascending colon was found. The mass could not be entirely removed so it was tattooed. 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 Patient reports that she has had normal BM without any blood. Patient has no complaints at this time and is tolerating diet. Denies fever/chills, cp, SOB, abd pain, n/v/d, consitpation, hematochezia, melena, hematemesis, urinary symptoms. PMH: Arthritis, HTN, Hyperlipidemia, Hypothyroidism, GERD, gastritis PSH: Cholecystectomy, ?tubal ligation, EGD, colonoscopy ALL: NKDA Review of Systems - Review of Systems All systems: reviewed and no additional remarkable complaints except (as per HPI) Past Patient History - Past Medical History & Family History Past Medical History?: Yes - Past Social History Smoking Status: Never Smoked - CARDIAC Hx Hypertension: Yes - ENDOCRINE/METABOLIC Hx Hypothyroidism: Yes - MUSCULOSKELETAL/RHEUMATOLOGICAL Hx Arthritis: Yes - PSYCHIATRIC Hx Substance Use: No - SURGICAL HISTORY Hx Cholecystectomy: Yes - ANESTHESIA Hx Anesthesia: Yes Hx Anesthesia Reactions: No Hx Malignant Hyperthermia: No Meds Allergies/Adverse Reactions: Allergies Allergy/AdvReac Type Severity Reaction Status Date / Time No Known Allergies Allergy Verified 12/25/17 10:09 - Medications Medications: Current Medications Enoxaparin Sodium (Lovenox) 40 mg SC DAILY [facility] Last Admin: 03/10/19 10:20 Dose: 40 mg Levothyroxine Sodium (Levothroid) 137 mcg PO DAILY@0630 [facility] Last Admin: 03/10/19 05:40 Dose: 137 mcg Losartan Potassium (Cozaar) 100 mg PO DAILY [facility] Last Admin: 03/10/19 10:16 Dose: 100 mg Metoclopramide HCl (Reglan) 5 mg IVP Q6H [facility] Last Admin: 03/10/19 11:32 Dose: 5 mg Morphine Sulfate (Morphine) 2 mg SC Q4 PRN PRN Reason: Pain, moderate (4-7) Ondansetron HCl (Zofran Inj) 4 mg IVP Q4 PRN PRN Reason: Nausea/Vomiting Pantoprazole Sodium (Protonix Inj) 40 mg IVP DAILY [facility] Last Admin: 03/10/19 10:14 Dose: 40 mg Sucralfate (Carafate Oral Susp) 1 gm PO BID [facility] Last Admin: 03/10/19 10:14 Dose: 1 gm Physical Exam - Constitutional Appears: No Acute Distress - Head Exam Head Exam: ATRAUMATIC, NORMOCEPHALIC - Eye Exam Eye Exam: EOMI, Normal appearance Pupil Exam: PERRL - ENT Exam ENT Exam: Mucous Membranes Moist - Respiratory Exam Respiratory Exam: NORMAL BREATHING PATTERN - Cardiovascular Exam Cardiovascular Exam: REGULAR RHYTHM - GI/Abdominal Exam GI & Abdominal Exam: Normal Bowel Sounds, Soft. absent: Distended, Firm, Guarding, Hernia, Mass, Rebound, Rigid, Tenderness - Rectal Exam Rectal Exam: Deferred - Extremities Exam Extremities exam: Positive for: normal capillary refill, pedal pulses present. Negative for: calf tenderness - Back Exam Back exam: absent: CVA tenderness (L), CVA tenderness (R) - Neurological Exam Neurological exam: Alert, CN II-XII Intact, Oriented x3 - Psychiatric Exam Psychiatric exam: Normal Affect, Normal Mood - Skin Skin Exam: Dry, Intact, Normal Color, Warm Results - Vital Signs Recent Vital Signs: Last Vital Signs Temp 98 F 03/10/19 07:00 Pulse 86 03/10/19 07:00 Resp 20 03/10/19 07:00 BP 126/69 03/10/19 07:00 Pulse Ox 97 03/10/19 07:00 - Labs Result Diagrams: 03/08/19 06:44 03/09/19 06:15 Assessment & Plan - Assessment and Plan (Free Text) Assessment: 78 F with 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 Dmitri Thompson PGY2 - Date & Time Date: 03/10/19 Time: 16:00
--- NOTE | 2019-03-10 17:35 | PN ---
DATE: 03/10/2019 LOCATION: 353, bed A. SUBJECTIVE: This is a 78-year-old female, post colonoscopy with biopsy and tattooing, seen and examined in rounds with much less abdominal pain. No dizziness, no nausea or vomiting this morning. No chest pain or palpitations. The entire chart is reviewed including but not limited to the most recent lab and radiology study results, current and the previous medication list. Today's lab results still pending and pathology report is still also pending for the colon mass lesion. PHYSICAL EXAMINATION: GENERAL: A 78-year-old female. VITAL SIGNS: Afebrile with pulse of 88, respiratory rate 20 to 22, and blood pressure of 130/66. HEENT: Showed pale, dry oral mucous membrane. Nonicteric sclerae. LUNGS: Few scattered crepitation. Decreased air entry at bases. HEART: Positive S1 and S2. ABDOMEN: Soft with mild generalized tenderness. No mass or organomegaly. No rebound tenderness or guarding. EXTREMITIES: Without significant clubbing, cyanosis or edema. NEUROLOGICAL: No reported new neurological deficits, sensory or motor. IMPRESSION: 1. Anemia. 2. Re-exacerbation of peptic ulcer disease. 3. Colon mass lesion to rule out, most likely, neoplastic changes. SUGGESTIONS: 1. Continue current management. 2. Surgical reevaluation pending the outcome of the pathology report. 3. Further recommendation to follow. Ramesh Cramer MD
--- NOTE | 2019-03-10 22:17 | PN ---
DATE: 03/10/2019 SUBJECTIVE: The patient has colon mass and biopsy is pending. A surgical consult has been requested. Sodium is up. Blood pressure has gone down. No fever. No chills. No nausea, vomiting. PHYSICAL EXAMINATION: VITAL SIGNS: Blood pressure 158/67, pulse 82, respiratory rate 20, temperature 98.3. LUNGS: Clear. CARDIOVASCULAR SYSTEM: S1, S2. Regular. ABDOMEN: Soft. ASSESSMENT: 1. A colon mass, pending biopsy. 2. Hypertension. 3. Hypernatremia. PLAN: IV fluids. Surgical consult. Monitor patient. Ruddy Dia MD
[2019-03-11 07:01] LABS: BASO # 0.1 K/uL (0.0-0.2); BASO % 0.7 % (0.0-2.0); EOS # 0.2 K/uL (0.0-0.7); EOS % 2.3 % (0.0-4.0); HEMOGLOBIN 13.2 g/dL (11.0-16.0); LYMPH # 1.8 K/uL (1.0-4.3); LYMPH % 21.6 % (20.0-40.0); MEAN CELL VOLUME 92.2 fL (81.0-99.0); MEAN CORPUSCULAR HEMOGLOBIN 32.3 pg (27.0-31.0); MEAN PLATELET VOLUME 7.5 fL (7.2-11.7); MONO # 0.6 K/uL (0.0-0.8); MONO % 6.8 % (0.0-10.0); NEUT # 5.8 K/uL (1.8-7.0); NEUT % 68.6 % (50.0-75.0); NRBC % 0.1 % (0.0-2.0); RBC 4.07 Mil/uL (3.80-5.20); RED CELL DISTRIBUTION WIDTH 14.3 % (11.5-14.5); WHITE BLOOD COUNT 8.4 K/uL (4.8-10.8)
[2019-03-11 07:24] LABS: ALB/GLOB RATIO 1.4 (1.0-2.1); ALBUMIN 3.6 g/dL (3.5-5.0); ALT/SGPT 14 U/L (9-52); AST/SGOT 30 U/L (14-36); BLOOD UREA NITROGEN 7 mg/dL (7-17); CALCIUM 9.2 mg/dl (8.6-10.4); GFR NON-AFRICAN AMERICAN > 60
[2019-03-11] MEDS: Enoxaparin 40 mg Syringe SC SCH (09:41)
[2019-03-11] MEDS: Sucralfate 1 gm/10 ml Oral Susp UD PO SCH ×2 (09:42→17:22)
[2019-03-11] MEDS ORDERED: Peg-Electrolyte Oral Soln 4L (Golytely) PO ONE (17:28)
--- NOTE | 2019-03-11 17:39 | CP.PCM.PCO ---
Physician Communication Note - Physician Communication Note Physician Communication Note: OK with hemicolectomy cardiacwise.Postop Telemetry
--- NOTE | 2019-03-11 18:28 | CP.PCM.PN ---
Subjective - Date & Time of Evaluation Date of Evaluation: 03/11/19 Time of Evaluation: 09:00 - Subjective Subjective: General Surgery Note for Dr. Rizvi Patient seen and examined at bedside. No acute event overnight. Patient has no complaints. Patient and family are aware about the procedure. It was explained by Dr. Rizvi. Plan for OR Monday 03/12. Objective - Vital Signs/Intake and Output Vital Signs (last 24 hours): Temp Pulse Resp BP Pulse Ox 97.8 F 91 H 20 180/82 H 98 03/11/19 16:04 03/11/19 16:04 03/11/19 16:04 03/11/19 16:04 03/11/19 16:04 Intake and Output: 03/11/19 03/11/19 06:59 18:59 Intake Total 540 400 Balance 540 400 - Medications Medications: Current Medications Enoxaparin Sodium (Lovenox) 40 mg SC DAILY [facility] Last Admin: 03/11/19 09:41 Dose: 40 mg Erythromycin (Erythromycin) 1,000 mg PO ONCE ONE; Protocol Stop: 03/11/19 19:31 Erythromycin (Erythromycin) 1,000 mg PO ONCE ONE; Protocol Stop: 03/12/19 02:31 Erythromycin (Erythromycin) 1,000 mg PO ONCE ONE; Protocol Stop: 03/11/19 18:31 Lactated Ringer's (Lactated Ringer's) 1,000 mls @ 125 mls/hr IV .Q8H [facility] Levothyroxine Sodium (Levothroid) 137 mcg PO DAILY@0630 [facility] Last Admin: 03/11/19 05:31 Dose: 137 mcg Losartan Potassium (Cozaar) 100 mg PO DAILY [facility] Last Admin: 03/11/19 09:40 Dose: 100 mg Metoclopramide HCl (Reglan) 5 mg IVP Q6H [facility] Last Admin: 03/11/19 17:22 Dose: 5 mg Metoprolol Tartrate (Lopressor) 50 mg PO BID [facility] Last Admin: 03/11/19 18:14 Dose: 50 mg Neomycin Sulfate (Neomycin Tab) 500 mg PO ONCE ONE Stop: 03/11/19 18:31 Neomycin Sulfate (Neomycin Tab) 1,000 mg PO ONCE ONE Stop: 03/11/19 19:31 Neomycin Sulfate (Neomycin Tab) 1,000 mg PO ONCE ONE Stop: 03/12/19 02:31 Ondansetron HCl (Zofran Inj) 4 mg IVP Q4 PRN PRN Reason: Nausea/Vomiting Pantoprazole Sodium (Protonix Inj) 40 mg IVP DAILY [facility] Last Admin: 03/11/19 09:41 Dose: 40 mg Sucralfate (Carafate Oral Susp) 1 gm PO BID [facility] Last Admin: 03/11/19 17:22 Dose: 1 gm - Labs Labs: 03/11/19 06:44 03/11/19 06:44 PT 11.6 SECONDS (9.7-12.2) 03/07/19 11:51 INR 1.1 03/07/19 11:51 APTT 46 SECONDS (21-34) H 03/07/19 11:51 - Additional Findings Additional findings: - Constitutional Appears: No Acute Distress - Head Exam Head Exam: ATRAUMATIC, NORMOCEPHALIC - Eye Exam Eye Exam: EOMI, Normal appearance Pupil Exam: PERRL - ENT Exam ENT Exam: Mucous Membranes Moist - Respiratory Exam Respiratory Exam: NORMAL BREATHING PATTERN - Cardiovascular Exam Cardiovascular Exam: REGULAR RHYTHM - GI/Abdominal Exam GI & Abdominal Exam: Normal Bowel Sounds, Soft. absent: Distended, Firm, Guarding, Hernia, Mass, Rebound, Rigid, Tenderness - Rectal Exam Rectal Exam: Deferred - Extremities Exam Extremities exam: Positive for: normal capillary refill, pedal pulses present. 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 Dmitri Thompson PGY2
[2019-03-11] MEDS ORDERED: Erythromycin Stearat 250 mg Tab PO ONE (18:30)
[2019-03-11] MEDS ORDERED: Magnesium Citrate Oral SOL (300 ml) PO ONE (19:14)
--- NOTE | 2019-03-11 20:57 | CARD ---
APPROVED REPORT Date of service: 03/11/2019 EXAM: Two-dimensional and M-mode echocardiogram with Doppler and color Doppler. Other Information Quality : GoodRhythm : INDICATION Evaluate Ejection Fraction 2D DIMENSIONS IVSd0.9 (0.7-1.1cm)LVDd4.4 (3.9-5.9cm) PWd1.0 (0.7-1.1cm)LA Vtfthh60 (18-58mL) LVDs3.1 (2.5-4.0cm)FS (%) 28.1 % LVEF (%)55.0 (>50%)LVEF (Razo's)57 % M-Mode DIMENSIONS Left Atrium (MM)3.94 (2.5-4.0cm)IVSd0.86 (0.7-1.1cm) Aortic Root3.88 (2.2-3.7cm)LVDd5.53 (4.0-5.6cm) Aortic Cusp Exc.2.57 (1.5-2.0cm)PWd0.84 (0.7-1.1cm) FS (%) 29 %LVDs3.90 (2.0-3.8cm) LVEF (%)60 (>50%) Mitral Valve MV E Ovdehhha48.9cm/sMV A Cojbmpjw73.3cm/sE/A ratio0.8 TDI Lateral E' Peak V7.57cm/sMedial E' Peak V9.40cm/sE/Lateral E'7.8 E/Medial E'6.3 Tricuspid Valve TR Peak Lewqtimq369om/sTR Peak Gr.[id number] LEFT VENTRICLE The left ventricle is normal size. There is normal left ventricular wall thickness. Left ventricle systolic function is normal. The Ejection Fraction is 60-65%. There is normal LV segmental wall motion. Transmitral Doppler flow pattern is Grade I-abnormal relaxation pattern. There is no ventricular septal defect visualized. RIGHT VENTRICLE The right ventricle is normal size. The right ventricular systolic function is normal. ATRIA The left atrium is mildly dilated. The right atrium size is normal. AORTIC VALVE The aortic valve is mildly sclerotic. The aortic valve is tri-cuspid. No aortic regurgitation is present. There is no aortic valvular stenosis. MITRAL VALVE The mitral valve is normal in structure. There is no evidence of mitral valve prolapse. Mitral regurgitation is trace.trace. TRICUSPID VALVE The tricuspid valve is normal in structure. There is trace tricuspid regurgitation. Right ventricular systolic pressure is estimated at less than 30 mmHg. There is no pulmonary hypertension. PULMONIC VALVE The pulmonic valve is not well visualized. There is trace pulmonic valvular regurgitation. GREAT VESSELS The aortic root is normal in size. The ascending aorta is normal in size. The IVC is normal in size and collapses >50% with inspiration. PERICARDIAL EFFUSION There is no pericardial effusion. <Conclusion> Left ventricle systolic function is normal. The Ejection Fraction is 60-65%. Transmitral Doppler flow pattern is Grade I-abnormal relaxation pattern. Mitral regurgitation is trace.trace.
[2019-03-11] MEDS: Lactated Ringer's 1,000 ML IV SCH (22:05)
--- NOTE | 2019-03-11 22:07 | PN ---
DATE: 03/11/2019 LOCATION: 353, bed A. SUBJECTIVE: This is a 78-year-old female post-colonoscopy with biopsy, seen and examined in rounds today without significant clinical changes or reported active bleeding, but intermittent period of mild abdominal pain with mild nausea. The entire chart is reviewed including but not limited to the most recent lab and radiology study results, and colon biopsy results showed evidence of fragment of tubulovillous adenoma. Gastric biopsy showed negative for Helicobacter pylori infection. Today's lab showed normal CBC, but low sodium of 130 and total bilirubin 1.5, total protein 6.2. PHYSICAL EXAMINATION: GENERAL: A 78-year-old female awake, alert, oriented. VITAL SIGNS: Afebrile with pulse of 88, blood pressure of 174/80 with respiratory rate of 20 to 22. HEENT: Showed dry oral mucous membrane and nonicteric sclerae. LUNGS: Few scattered crepitation. Decreased air entry at bases. HEART: Positive S1 and S2. ABDOMEN: Soft with mild generalized tenderness. No mass or organomegaly. No rebound tenderness or guarding but slight generalized distention and tenderness. EXTREMITIES: Without edema, clubbing or cyanosis. NEUROLOGIC: No reported new neurological deficits, sensory or motor. IMPRESSION: 1. Re-exacerbation of peptic ulcer disease. 2. Colon mass lesion, highly suggestive endoscopically of carcinoma of the colon despite the biopsy report of tubulovillous adenoma. 3. Electrolyte imbalance with hyponatremia. 4. Known history of hypertension, osteoarthritis and hypothyroidism. SUGGESTIONS: 1. Continue current management. 2. Surgical re-evaluation for potential partial right side colon resection which I believe the lesion in it is carrying neoplastic changes. 3. Further recommendation to follow. Ramesh Cramer MD
--- NOTE | 2019-03-11 22:33 | CP.PCM.PN ---
Subjective - Date & Time of Evaluation Date of Evaluation: 03/11/19 Time of Evaluation: 09:00 - Subjective Subjective: dict Objective - Vital Signs/Intake and Output Vital Signs (last 24 hours): Temp Pulse Resp BP Pulse Ox 97.8 F 91 H 20 180/82 H 98 03/11/19 16:04 03/11/19 16:04 03/11/19 16:04 03/11/19 16:04 03/11/19 16:04 Intake and Output: 03/11/19 03/12/19 18:59 06:59 Intake Total 400 Balance 400 - Medications Medications: Current Medications Enoxaparin Sodium (Lovenox) 40 mg SC DAILY [facility] Last Admin: 03/11/19 09:41 Dose: 40 mg Erythromycin (Erythromycin) 1,000 mg PO ONCE ONE; Protocol Stop: 03/12/19 02:31 Lactated Ringer's (Lactated Ringer's) 1,000 mls @ 125 mls/hr IV .Q8H [facility] Last Admin: 03/11/19 22:05 Dose: 125 mls/hr Levothyroxine Sodium (Levothroid) 137 mcg PO DAILY@0630 [facility] Last Admin: 03/11/19 05:31 Dose: 137 mcg Losartan Potassium (Cozaar) 100 mg PO DAILY [facility] Last Admin: 03/11/19 09:40 Dose: 100 mg Metoclopramide HCl (Reglan) 5 mg IVP Q6H [facility] Last Admin: 03/11/19 17:22 Dose: 5 mg Metoprolol Tartrate (Lopressor) 50 mg PO BID [facility] Last Admin: 03/11/19 18:14 Dose: 50 mg Neomycin Sulfate (Neomycin Tab) 1,000 mg PO ONCE ONE Stop: 03/12/19 02:31 Ondansetron HCl (Zofran Inj) 4 mg IVP Q4 PRN PRN Reason: Nausea/Vomiting Pantoprazole Sodium (Protonix Inj) 40 mg IVP DAILY [facility] Last Admin: 03/11/19 09:41 Dose: 40 mg Sucralfate (Carafate Oral Susp) 1 gm PO BID [facility] Last Admin: 03/11/19 17:22 Dose: 1 gm - Labs Labs: 03/11/19 06:44 03/11/19 06:44 PT 11.6 SECONDS (9.7-12.2) 03/07/19 11:51 INR 1.1 03/07/19 11:51 APTT 46 SECONDS (21-34) H 03/07/19 11:51
--- NOTE | 2019-03-12 01:58 | PN ---
DATE: 03/11/2019 SUBJECTIVE: The patient is with abdominal pain. She is for OR tomorrow. She denies any shortness of breath or chest pain. No nausea or vomiting. PHYSICAL EXAMINATION: VITAL SIGNS: Blood pressure 118/82, pulse 91, respiratory rate 20, and temperature 97.8. LUNGS: Clear. CARDIOVASCULAR SYSTEM: S1 and S2, regular. ABDOMEN: Soft, diffuse tenderness. ASSESSMENT: 1. Colon mass, for operating room in morning. 2. Hypertension. 3. Dehydration. PLAN: OR, cardiac eval prior to. We will monitor the patient. Ruddy Dia MD
--- NOTE | 2019-03-12 04:00 | CON ---
DATE: 03/11/2019 CARDIOLOGY CONSULTATION REASON FOR CONSULTATION: Preoperative clearance for hemicolectomy, planned for tomorrow. HISTORY OF PRESENT ILLNESS: The patient is a 78-year-old female, who has no known prior cardiac history, was initially admitted because of epigastric pain and decreased appetite. The patient's upper endoscopy was consistent with hiatus hernia and non-bleeding duodenal diverticulum. Colonoscopy findings, non-bleeding external and internal hemorrhoids. Malignant tumor in the proximal ascending colon, biopsied. The official biopsy report is fragments of tubulovillous adenoma. The patient is being considered for right hemicolectomy tomorrow. The patient denies any chest pain either now or in the past. Denies any history of coronary intervention. SOCIAL HISTORY: Nonsmoker, nondrinker. MEDICATIONS: Carafate 1 g b.i.d., Cozaar 100 mg daily, hydrochlorothiazide 25 mg daily, lactated Ringer's at 125 mL an hour, Synthroid 137 mcg daily, Lovenox 40 mg subcutaneous once a day, Protonix 40 mg subcutaneously daily. REVIEW OF SYSTEMS: No hematemesis or melena. No fever or chills. No productive cough. PHYSICAL EXAMINATION: GENERAL: The patient is an elderly female, who does not appear to be in acute distress. VITAL SIGNS: Blood pressure 180/82, heart rate 91, temperature 97.8, respirations 20. HEENT: Normocephalic. CHEST: Clear. HEART: S1 and S2, regular. ABDOMEN: Soft. EXTREMITIES: No edema. LABORATORY DATA: Today's hemoglobin and hematocrit 13.1 and 37.6 respectively. White count and platelets counts are within normal limits. Today's SMA-7 is within normal limits except for sodium 130 and chloride of 97. EKG revealed normal sinus rhythm. Preliminary review of the echo revealed LVH with normal systolic function. Abdomen and pelvic CT scan suspicious for gastric wall swelling and gastritis, please correlate clinically. ASSESSMENT: 1. Large ascending tubulovillous adenoma. 2. Uncontrolled hypertension. 3. Hyponatremia. 4. Hypothyroidism. RECOMMENDATIONS: Continue Cozaar 100 mg daily and discontinue hydrochlorothiazide in view of hyponatremia. Continue Synthroid 137 mcg daily, may hold Lovenox for anticipated surgery tomorrow. Start Lopressor at 50 mg twice a day. The patient can undergo right hemicolectomy from the cardiac point of view with postoperative telemetry monitoring and resumption of beta-blockers postoperatively. Jan Arredondo MD
[2019-03-12] MEDS: Lactated Ringer's 1,000 ML IV SCH ×3 (05:45→22:45)
[2019-03-12 07:20] LABS: INR 1.1; PROTHROMBIN TIME 11.7 SECONDS (9.7-12.2)
[2019-03-12 07:21] LABS: BASO % 0.5 % (0.0-2.0); EOS # 0.2 K/uL (0.0-0.7); EOS % 2.2 % (0.0-4.0); HEMOGLOBIN 13.6 g/dL (11.0-16.0); LYMPH # 1.6 K/uL (1.0-4.3); LYMPH % 20.4 % (20.0-40.0); MEAN CORPUSCULAR HEMOGLOBIN 32.5 pg (27.0-31.0); MEAN CORPUSCULAR HGB CONC 35.4 g/dL (33.0-37.0); MEAN PLATELET VOLUME 7.6 fL (7.2-11.7); MONO # 0.6 K/uL (0.0-0.8); MONO % 7.2 % (0.0-10.0); NEUT # 5.4 K/uL (1.8-7.0); NEUT % 69.7 % (50.0-75.0); NRBC % 0.1 % (0.0-2.0); RBC 4.19 Mil/uL (3.80-5.20); RED CELL DISTRIBUTION WIDTH 14.7 % (11.5-14.5); WHITE BLOOD COUNT 7.7 K/uL (4.8-10.8)
[2019-03-12 07:38] LABS: ALB/GLOB RATIO 1.4 (1.0-2.1); ALBUMIN 3.7 g/dL (3.5-5.0); ALT/SGPT 18 U/L (9-52); AST/SGOT 34 U/L (14-36); BLOOD UREA NITROGEN 7 mg/dL (7-17); CALCIUM 9.6 mg/dl (8.6-10.4); GFR NON-AFRICAN AMERICAN > 60
[2019-03-12] MEDS: Sucralfate 1 gm/10 ml Oral Susp UD PO SCH ×2 (11:00→17:29)
[2019-03-12] MEDS ORDERED: Rocuronium 10 mg/ml (5 ml) ONE (11:56)
[2019-03-12] MEDS ORDERED: Succinylcholine Chloride 20 mg/ml Syr (5 ml) IV ONE (11:56)
[2019-03-12] MEDS ORDERED: Propofol 10 mg/ml Inj (20 ML) ONE (11:56)
[2019-03-12] MEDS ORDERED: Midazolam 2 MG/2 ML VIAL ONE (11:56)
[2019-03-12] MEDS ORDERED: Sodium Chloride 0.9% 1,000 ML IV ONE ×2 (12:22→12:35)
[2019-03-12] MEDS: ceFAZolin 1 gm in NS 2 GM/200 ML BAG IVPB ONE ×2 (12:27→13:48)
[2019-03-12] MEDS: metroNIDAZOLE IV 500 mg/100 ml 500 MG/100 ML BAG ONE ×2 (12:35→13:49)
[2019-03-12] MEDS ORDERED: ePHEDrine 50 mg/ml Inj ONE (13:34)
[2019-03-12] MEDS ORDERED: Neostigmine 1:1000 (1 mg/ml) Inj ONE (13:34)
[2019-03-12] MEDS ORDERED: Bupivacaine 0.25% 20 ML INJ IJ ONE (13:43)
[2019-03-12] MEDS ORDERED: Lactated Ringer's 1,000 ML IV ONE (14:00)
[2019-03-12] MEDS ORDERED: HYDROmorphone 1 mg/ml ISec IVP PRN (14:19)
[2019-03-12] MEDS ORDERED: BUPIVACAINE 0.125%/0.9% NACL 600 ML IJ ONE (14:20)
--- NOTE | 2019-03-12 14:22 | PCM.SURG1 ---
Surgeon's Initial Post Op Note - Surgeon's Notes Surgeon: Dr. Rizvi [employer] Consultant: Donna PGY2 Type of Anesthesia: General Endo Anesthesia Administered By: Dr. Hinton Pre-Operative Diagnosis: Tubulovillous adenoma in right colon Operative Findings: Tubulovillous adenoma in right colon with ink stain Post-Operative Diagnosis: Tubulovillous adenoma in right colon Operation Performed: Right hemicolectomy Specimen/Specimens Removed: Right colon, IC valve, appendix Estimated Blood Loss: EBL {In ML}: 75 Blood Products Given: N/A Drains Used: Kaden (19 fr) Post-Op Condition: Good Date of Surgery/Procedure: 03/12/19 Time of Surgery/Procedure: 14:22
[2019-03-12] MEDS ORDERED: Labetalol 25mg/5ml Syringe IVP PRN (14:26)
--- NOTE | 2019-03-12 17:51 | PN ---
DATE: 03/12/2019 SUBJECTIVE: The patient denies any chest pain. PHYSICAL EXAMINATION: VITAL SIGNS: Blood pressure 138/80, heart rate 81, temperature 98.2, and respirations 20. HEENT: Normocephalic. CHEST: Clear. HEART: S1 and S2 regular. EXTREMITIES: No edema. LABORATORY DATA: Today's hemoglobin and hematocrit, white count and platelet count are within normal limits. Today's SMA-7 is within normal limits except for sodium of 130 and chloride of 96. ASSESSMENT: 1. Large ascending colon tubulovillous adenoma. 2. Hypertension. 3. Hyponatremia. 4. Hypothyroidism. RECOMMENDATIONS: The patient will undergo right hemicolectomy today. recommended with postoperative telemetry monitoring. Discontinue dietary salt restriction in view of hyponatremia. Jan Arredondo MD
--- NOTE | 2019-03-12 21:36 | CP.PCM.PN ---
Subjective - Date & Time of Evaluation Date of Evaluation: 03/12/19 Time of Evaluation: 09:00 - Subjective Subjective: dictated Objective - Vital Signs/Intake and Output Vital Signs (last 24 hours): Temp Pulse Resp BP Pulse Ox 98.5 F 79 15 139/65 100 03/12/19 17:34 03/12/19 19:20 03/12/19 19:20 03/12/19 19:17 03/12/19 19:20 Intake and Output: 03/12/19 03/13/19 18:59 06:59 Intake Total 210 100 Output Total 1230 180 Balance -1020 -80 - Medications Medications: Current Medications Enoxaparin Sodium (Lovenox) 40 mg SC DAILY [facility] Last Admin: 03/11/19 09:41 Dose: 40 mg Hydromorphone HCl (Dilaudid) 1 mg IVP Q4H PRN PRN Reason: Pain, severe (8-10) Last Admin: 03/12/19 19:00 Dose: 1 mg BUPIVACAINE 0.125%/0.9% NACL (Bupivacaine-Ns 0.125% On-Q Certification Officer) 600 mls @ 4 mls/hr IJ ONCE ONE Stop: 03/18/19 20:19 Last Admin: 03/12/19 17:00 Dose: 4 mls/hr Lactated Ringer's (Lactated Ringer's) 1,000 mls @ 100 mls/hr IV .Q10H [facility] Labetalol HCl (Trandate) 5 mg IVP Q5MIN PRN PRN Reason: Pain, moderate (4-7) Last Admin: 03/12/19 15:02 Dose: 5 mg Levothyroxine Sodium (Levothroid) 137 mcg PO DAILY@0630 [facility] Last Admin: 03/12/19 05:46 Dose: Not Given Losartan Potassium (Cozaar) 100 mg PO DAILY [facility] Last Admin: 03/12/19 11:00 Dose: 100 mg Metoprolol Tartrate (Lopressor) 50 mg PO BID [facility] Last Admin: 03/12/19 19:38 Dose: Not Given Ondansetron HCl (Zofran Inj) 4 mg IVP Q4 PRN PRN Reason: Nausea/Vomiting Last Admin: 03/12/19 08:48 Dose: 4 mg Pantoprazole Sodium (Protonix Inj) 40 mg IVP DAILY [facility] Last Admin: 03/12/19 11:00 Dose: 40 mg Sucralfate (Carafate Oral Susp) 1 gm PO BID [facility] Last Admin: 03/12/19 17:29 Dose: Not Given - Labs Labs: 03/12/19 06:53 03/12/19 06:53 PT 11.7 SECONDS (9.7-12.2) 03/12/19 06:55 INR 1.1 03/12/19 06:55 APTT 39 SECONDS (21-34) H 03/12/19 06:55
[2019-03-13] MEDS: Lactated Ringer's 1,000 ML IV SCH ×2 (00:30→10:50)
--- NOTE | 2019-03-13 00:45 | PN ---
DATE: 03/12/2019 LOCATION: ICU 5. SUBJECTIVE: This is a 78-year-old female post colonoscopy and upper endoscopy, with colon mass-like lesion for which the patient is status post right hemicolectomy, stable clinically post surgically. The official pathology report from today's surgery is still pending. PHYSICAL EXAMINATION: GENERAL: The patient is somewhat sedated. VITAL SIGNS: Afebrile with a pulse of 80 and blood pressure 134/82. HEENT: Showed pale, dry oral mucous membranes, nonicteric sclerae. LUNGS: Few scattered crepitation. Decreased air entry at bases. HEART: Positive S1 and S2. ABDOMEN: Soft with mild distention with clean post-surgical dressing. No bowel sounds so far. EXTREMITIES: Without significant clubbing, cyanosis, or edema. NEUROLOGICAL: No reported new neurological deficits, sensory or motor. IMPRESSION: 1. Re-exacerbation of peptic ulcer disease. 2. Colon mass lesion reported as well as tubular adenoma; however, the lesion appeared to be a malignant lesion endoscopically, awaiting both right hemicolectomy and pathology report today. 3. Electrolyte imbalance. 4. Known history of hypertension, peptic ulcer disease, osteoarthritis, and hypothyroidism. SUGGESTIONS: 1. Agree with your plan. 2. Antireflux measures. 3. Further recommendation to follow. Ramesh Cramer MD
--- NOTE | 2019-03-13 01:38 | PN ---
DATE: 03/12/2019 SUBJECTIVE: The patient is status post colon resection. The patient is in ICU extubated, awake, alert, in no distress. No fever, no tachycardia. Seen by Cardiology. PHYSICAL EXAMINATION: VITAL SIGNS: Blood pressure 139/65, pulse 77, respiratory rate 14, temperature 98. LUNGS: Clear. No rales, no rhonchi. CARDIOVASCULAR: S1, S2. Regular. ABDOMEN: Bowel sounds are diminished postop. ASSESSMENT: 1. Colon mass, status post colon resection. 2. Hypertension. 3. History of hyponatremia, resolved. PLAN: ICU, monitor labs, monitor vitals. Postoperative care, physical therapy once the patient is more stable. Ruddy Dia MD
[2019-03-13 06:27] LABS: BASO % 0.2 % (0.0-2.0); EOS % 0.3 % (0.0-4.0); HEMOGLOBIN 13.2 g/dL (11.0-16.0); LYMPH # 1.5 K/uL (1.0-4.3); LYMPH % 13.1 % (20.0-40.0); MEAN CELL VOLUME 93.2 fL (81.0-99.0); MEAN CORPUSCULAR HEMOGLOBIN 31.8 pg (27.0-31.0); MEAN CORPUSCULAR HGB CONC 34.1 g/dL (33.0-37.0); MEAN PLATELET VOLUME 7.6 fL (7.2-11.7); MONO # 0.5 K/uL (0.0-0.8); MONO % 4.6 % (0.0-10.0); NEUT # 9.5 K/uL (1.8-7.0); NEUT % 81.8 % (50.0-75.0); RBC 4.15 Mil/uL (3.80-5.20); RED CELL DISTRIBUTION WIDTH 14.5 % (11.5-14.5); WHITE BLOOD COUNT 11.6 K/uL (4.8-10.8)
[2019-03-13 06:37] LABS: ALB/GLOB RATIO 1.4 (1.0-2.1); ALBUMIN 3.3 g/dL (3.5-5.0); ALT/SGPT 13 U/L (9-52); AST/SGOT 35 U/L (14-36); BLOOD UREA NITROGEN 7 mg/dL (7-17); CALCIUM 8.6 mg/dl (8.6-10.4); GFR NON-AFRICAN AMERICAN > 60
--- NOTE | 2019-03-13 10:10 | PN ---
DATE: 03/13/2019 LOCATION: ICU 5. SUBJECTIVE: This 78-year-old female, seen and examined in rounds post right hemicolectomy with intermittent period of postsurgical pain. The entire chart is reviewed including but not limited to the most recent lab and radiology study results, current and previous medication list; and today's lab results showed white blood cells 11.6, normal hemoglobin and hematocrit with normal platelet count, sodium 130, magnesium 1.24, albumin 3.3, total protein 5.7. PHYSICAL EXAMINATION: GENERAL: A 78-year-old female. VITAL SIGNS: Afebrile with pulse of 80, respiratory rate 20-22, blood pressure of 120/64. HEENT: Showed pale, dry oral mucous membrane. Nonicteric sclerae. LUNGS: Few scattered crepitation, decreased air entry at bases. HEART: Positive S1 and S2. ABDOMEN: Soft with mild generalized tenderness. No mass or organomegaly. No rebound tenderness or guarding. EXTREMITIES: Without significant clubbing, cyanosis or edema. No reported new neurological deficits, sensory or motor. IMPRESSION: 1. Peptic ulcer disease. 2. Colon mass lesion with status post right hemicolectomy. 3. Electrolyte imbalance with hypomagnesemia and hyponatremia. 4. Known history of hypertension, osteoarthritis, and hypothyroidism. SUGGESTIONS: 1. Continue current management. 2. On records, the patient's abdominal dressing appeared to be dry and bowel sounds appeared to be negative so far. At this point, no bowel movement and no nausea or vomiting reported. 3. Leave the patient on peripheral hyperalimentation in the meantime and follow up on the pathology report. Ramesh Cramer MD
[2019-03-13] MEDS: Sucralfate 1 gm/10 ml Oral Susp UD PO SCH ×2 (11:25→18:02)
[2019-03-13] MEDS ORDERED: Magnesium Sulfate 1 gm in D5W 1 GM/100 ML BAG IVPB ONE (17:00)
--- NOTE | 2019-03-13 17:27 | CP.PCM.PN ---
Subjective - Date & Time of Evaluation Date of Evaluation: 03/13/19 Time of Evaluation: 07:05 - Subjective Subjective: General Surgery Note for Dr. Rizvi Patient seen and examined at bedside. No acute event overnight. Patient is s/p right hemicolectomy POD#1. Patient states pain is controlled with ON-Q and medication. Denies nausea/vomiting. Denies flatus or BM. Patient is asking to drink. Objective - Vital Signs/Intake and Output Vital Signs (last 24 hours): Temp Pulse Resp BP Pulse Ox 98.5 F 97 H 21 131/103 H 96 03/12/19 17:34 03/13/19 12:00 03/13/19 12:00 03/13/19 11:18 03/13/19 12:00 Intake and Output: 03/13/19 03/13/19 06:59 18:59 Intake Total 1200 1300 Output Total 1375 935 Balance -175 365 - Medications Medications: Current Medications Enoxaparin Sodium (Lovenox) 40 mg SC DAILY [facility] Last Admin: 03/11/19 09:41 Dose: 40 mg Hydromorphone HCl (Dilaudid) 1 mg IVP Q4H PRN PRN Reason: Pain, severe (8-10) Last Admin: 03/12/19 19:00 Dose: 1 mg BUPIVACAINE 0.125%/0.9% NACL (Bupivacaine-Ns 0.125% On-Q Risk Manager) 600 mls @ 4 mls/hr IJ ONCE ONE Stop: 03/18/19 20:19 Last Admin: 03/12/19 17:00 Dose: 4 mls/hr Lactated Ringer's (Lactated Ringer's) 1,000 mls @ 100 mls/hr IV .Q10H [facility] Last Admin: 03/13/19 10:50 Dose: 100 mls/hr Magnesium Sulfate/Dextrose (Magnesium Sulfate 1 Gm/100 Ml D5w) 1 gm in 100 mls @ 200 mls/hr IVPB ONCE ONE Stop: 03/13/19 17:29 Labetalol HCl (Trandate) 5 mg IVP Q5MIN PRN PRN Reason: Pain, moderate (4-7) Last Admin: 03/12/19 15:02 Dose: 5 mg Levothyroxine Sodium (Levothroid) 137 mcg PO DAILY@0630 [facility] Last Admin: 03/13/19 08:10 Dose: Not Given Losartan Potassium (Cozaar) 100 mg PO DAILY [facility] Last Admin: 03/13/19 11:24 Dose: 100 mg Metoprolol Tartrate (Lopressor) 50 mg PO BID [facility] Last Admin: 03/13/19 11:25 Dose: 50 mg Ondansetron HCl (Zofran Inj) 4 mg IVP Q4 PRN PRN Reason: Nausea/Vomiting Last Admin: 03/12/19 08:48 Dose: 4 mg Pantoprazole Sodium (Protonix Inj) 40 mg IVP DAILY [facility] Last Admin: 03/13/19 11:38 Dose: 40 mg Sucralfate (Carafate Oral Susp) 1 gm PO BID [facility] Last Admin: 03/13/19 11:25 Dose: 1 gm - Labs Labs: 03/13/19 06:16 03/13/19 06:14 PT 11.7 SECONDS (9.7-12.2) 03/12/19 06:55 INR 1.1 03/12/19 06:55 APTT 39 SECONDS (21-34) H 03/12/19 06:55 - Additional Findings Additional findings: - Constitutional Appears: No Acute Distress - Head Exam Head Exam: ATRAUMATIC, NORMOCEPHALIC - Eye Exam Eye Exam: EOMI, Normal appearance Pupil Exam: PERRL - ENT Exam ENT Exam: Mucous Membranes Moist - Respiratory Exam Respiratory Exam: NORMAL BREATHING PATTERN - Cardiovascular Exam Cardiovascular Exam: REGULAR RHYTHM - GI/Abdominal Exam GI & Abdominal Exam: Normal Bowel Sounds, Soft. absent: Distended, Firm, Guarding, Hernia, Mass, Rebound, Rigid, Tenderness Additional comments: dressing clean dry and intact ON-Q pump in place Nereyda drain in RUQ - Rectal Exam Rectal Exam: Deferred - Extremities Exam Extremities exam: Positive for: normal capillary refill, pedal pulses present. Negative for: calf tenderness - Back Exam Back exam: absent: CVA tenderness (L), CVA tenderness (R) - Neurological Exam Neurological exam: Alert, CN II-XII Intact, Oriented x3 - Psychiatric Exam Psychiatric exam: Normal Affect, Normal Mood - Skin Skin Exam: Dry, Intact, Normal Color, Warm Assessment and Plan - Assessment and Plan (Free Text) Assessment: 78 F with ascending colon mass found to be tubulovillious adenoma s/p right hemicolectomy POD#1 Plan: -CLD -Pain control -Anti-emetic PRN -I's & O's -Monitor nereyda output -medical management as per primary -Discussed with Dr. Dmitri Thompson PGY2
--- NOTE | 2019-03-13 21:45 | CP.PCM.PN ---
Subjective - Date & Time of Evaluation Date of Evaluation: 03/13/19 Time of Evaluation: 16:00 - Subjective Subjective: dictated Objective - Vital Signs/Intake and Output Vital Signs (last 24 hours): Temp Pulse Resp BP Pulse Ox 99.7 F H 93 H 20 152/78 H 97 03/13/19 16:00 03/13/19 16:00 03/13/19 16:00 03/13/19 16:00 03/13/19 16:00 Intake and Output: 03/13/19 03/14/19 18:59 06:59 Intake Total 1300 Output Total 935 Balance 365 - Medications Medications: Current Medications Enoxaparin Sodium (Lovenox) 40 mg SC DAILY [facility] Last Admin: 03/11/19 09:41 Dose: 40 mg Hydromorphone HCl (Dilaudid) 1 mg IVP Q4H PRN PRN Reason: Pain, severe (8-10) Last Admin: 03/12/19 19:00 Dose: 1 mg BUPIVACAINE 0.125%/0.9% NACL (Bupivacaine-Ns 0.125% On-Q Copying Machine Mechanic) 600 mls @ 4 mls/hr IJ ONCE ONE Stop: 03/18/19 20:19 Last Admin: 03/12/19 17:00 Dose: 4 mls/hr Lactated Ringer's (Lactated Ringer's) 1,000 mls @ 100 mls/hr IV .Q10H [facility] Last Admin: 03/13/19 10:50 Dose: 100 mls/hr Labetalol HCl (Trandate) 5 mg IVP Q5MIN PRN PRN Reason: Pain, moderate (4-7) Last Admin: 03/12/19 15:02 Dose: 5 mg Levothyroxine Sodium (Levothroid) 137 mcg PO DAILY@0630 [facility] Last Admin: 03/13/19 08:10 Dose: Not Given Losartan Potassium (Cozaar) 100 mg PO DAILY [facility] Last Admin: 03/13/19 11:24 Dose: 100 mg Metoprolol Tartrate (Lopressor) 50 mg PO BID [facility] Last Admin: 03/13/19 18:02 Dose: 50 mg Ondansetron HCl (Zofran Inj) 4 mg IVP Q4 PRN PRN Reason: Nausea/Vomiting Last Admin: 03/12/19 08:48 Dose: 4 mg Pantoprazole Sodium (Protonix Inj) 40 mg IVP DAILY [facility] Last Admin: 03/13/19 11:38 Dose: 40 mg Sucralfate (Carafate Oral Susp) 1 gm PO BID [facility] Last Admin: 03/13/19 18:02 Dose: 1 gm - Labs Labs: 03/13/19 06:16 03/13/19 06:14 PT 11.7 SECONDS (9.7-12.2) 03/12/19 06:55 INR 1.1 03/12/19 06:55 APTT 39 SECONDS (21-34) H 03/12/19 06:55
--- NOTE | 2019-03-14 00:24 | PN ---
DATE: 03/13/2019 SUBJECTIVE: The patient is status post colectomy. She is afebrile. No shortness of breath. No nausea or vomiting. She is awake, alert. She is out of ICU. PHYSICAL EXAMINATION: VITAL SIGNS: Blood pressure 152/78, pulse 93, respiratory rate 20, temperature 99.7. LUNGS: Clear. No rales. No rhonchi. CARDIOVASCULAR SYSTEM: S1 and S2, regular. ABDOMEN: Postop bowel sounds are present. ASSESSMENT: 1. Colon mass, status post colectomy. 2. Hypertension. 3. Hyponatremia. PLAN: Continue to monitor the patient. Wait for biopsy. Ruddy Dia MD
[2019-03-14] MEDS: Lactated Ringer's 1,000 ML IV SCH (06:27)
[2019-03-14 07:48] LABS: BASO # 0.1 K/uL (0.0-0.2); BASO % 0.6 % (0.0-2.0); EOS # 0.2 K/uL (0.0-0.7); EOS % 1.6 % (0.0-4.0); HEMOGLOBIN 13.1 g/dL (11.0-16.0); LYMPH # 1.6 K/uL (1.0-4.3); MEAN CELL VOLUME 92.8 fL (81.0-99.0); MEAN CORPUSCULAR HEMOGLOBIN 31.6 pg (27.0-31.0); MEAN PLATELET VOLUME 7.2 fL (7.2-11.7); MONO # 0.7 K/uL (0.0-0.8); MONO % 6.8 % (0.0-10.0); NEUT # 7.6 K/uL (1.8-7.0); RBC 4.17 Mil/uL (3.80-5.20); RED CELL DISTRIBUTION WIDTH 14.6 % (11.5-14.5); WHITE BLOOD COUNT 10.1 K/uL (4.8-10.8)
[2019-03-14 08:07] LABS: ALB/GLOB RATIO 1.2 (1.0-2.1); ALBUMIN 3.2 g/dL (3.5-5.0); ALT/SGPT 14 U/L (9-52); AST/SGOT 36 U/L (14-36); BLOOD UREA NITROGEN 7 mg/dL (7-17); CALCIUM 9.1 mg/dl (8.6-10.4); GFR NON-AFRICAN AMERICAN > 60
--- NOTE | 2019-03-14 09:50 | CP.PCM.PN ---
Subjective - Date & Time of Evaluation Date of Evaluation: 03/14/19 Time of Evaluation: 07:10 - Subjective Subjective: General Surgery: Dmitri Patient seen and examined this am at bedside. states she is feelinf well and has been tolerating her diet. She has been ambulating to the chair and the bathroom. She has been able to Void. She indicates that her pain is well controlled. otherwise denies n/v, f/c, stool changes, denies BM and flatus. 12 point ROS otherwise negative Objective - Vital Signs/Intake and Output Vital Signs (last 24 hours): Temp Pulse Resp BP Pulse Ox 98.9 F 75 20 117/84 96 03/14/19 07:00 03/14/19 07:00 03/14/19 07:00 03/14/19 07:00 03/14/19 07:00 Intake and Output: 03/14/19 03/14/19 06:59 18:59 Intake Total 100 Output Total 5 Balance 95 - Medications Medications: Current Medications Enoxaparin Sodium (Lovenox) 40 mg SC DAILY [facility] Last Admin: 03/11/19 09:41 Dose: 40 mg Hydromorphone HCl (Dilaudid) 1 mg IVP Q4H PRN PRN Reason: Pain, severe (8-10) Last Admin: 03/12/19 19:00 Dose: 1 mg BUPIVACAINE 0.125%/0.9% NACL (Bupivacaine-Ns 0.125% On-Q Nursing Program Manager) 600 mls @ 4 mls/hr IJ ONCE ONE Stop: 03/18/19 20:19 Last Admin: 03/12/19 17:00 Dose: 4 mls/hr Labetalol HCl (Trandate) 5 mg IVP Q5MIN PRN PRN Reason: Pain, moderate (4-7) Last Admin: 03/12/19 15:02 Dose: 5 mg Levothyroxine Sodium (Levothroid) 137 mcg PO DAILY@0630 [facility] Last Admin: 03/14/19 06:25 Dose: 137 mcg Losartan Potassium (Cozaar) 100 mg PO DAILY [facility] Last Admin: 03/13/19 11:24 Dose: 100 mg Metoprolol Tartrate (Lopressor) 50 mg PO BID [facility] Last Admin: 03/13/19 18:02 Dose: 50 mg Ondansetron HCl (Zofran Inj) 4 mg IVP Q4 PRN PRN Reason: Nausea/Vomiting Last Admin: 03/12/19 08:48 Dose: 4 mg Pantoprazole Sodium (Protonix Inj) 40 mg IVP DAILY [facility] Last Admin: 03/13/19 11:38 Dose: 40 mg Sucralfate (Carafate Oral Susp) 1 gm PO BID [facility] Last Admin: 03/13/19 18:02 Dose: 1 gm - Labs Labs: 03/14/19 07:39 03/14/19 07:39 PT 11.7 SECONDS (9.7-12.2) 03/12/19 06:55 INR 1.1 03/12/19 06:55 APTT 39 SECONDS (21-34) H 03/12/19 06:55 - Constitutional Appears: Well, Non-toxic, No Acute Distress - Head Exam Head Exam: ATRAUMATIC, NORMOCEPHALIC - Eye Exam Eye Exam: EOMI - ENT Exam ENT Exam: Mucous Membranes Moist - Respiratory Exam Respiratory Exam: NORMAL BREATHING PATTERN - Cardiovascular Exam Cardiovascular Exam: REGULAR RHYTHM - GI/Abdominal Exam GI & Abdominal Exam: Soft. absent: Guarding, Tenderness, Rebound - Extremities Exam Extremities Exam: absent: Calf Tenderness, Pedal Edema - Neurological Exam Neurological Exam: Alert, Awake, Oriented x3 - Psychiatric Exam Psychiatric exam: Normal Affect, Normal Mood - Skin Skin Exam: Dry, Intact, Normal Color, Warm Additional comments: incision CDI, onQ in place, drain site cdi, 5cc overnight from Nereyda drain dressing in place Assessment and Plan - Assessment and Plan (Free Text) Assessment: 78 F with ascending colon mass found to be tubulovillious adenoma s/p right hemicolectomy POD#1 Plan: -continue CLD, pending BF -Pain control -Anti-emetic PRN -I's & O's -Monitor nereyda output -medical management as per primary -Discussed with Dr. Dmitri Oden, PGY 1
[2019-03-14] MEDS: Enoxaparin 40 mg Syringe SC SCH (10:15)
[2019-03-14] MEDS: Sucralfate 1 gm/10 ml Oral Susp UD PO SCH ×2 (10:15→17:47)
--- NOTE | 2019-03-14 10:32 | PN ---
DATE: 03/14/2019 LOCATION: 656, bed A. SUBJECTIVE: This 78-year-old female seen and examined in rounds out of the intensive care unit, tolerating clear liquid diet, passing a gas but no reported bowel movement this morning. The entire chart is reviewed including but not limited to the most recent lab and radiology study results and today's lab showed normal CBC. Rest of the lab results still pending. PHYSICAL EXAMINATION: GENERAL: A 78-year-old female. VITAL SIGNS: Afebrile with pulse of 78, respiratory rate 20 to 22 with blood pressure of 136/76. HEENT: Showed pale, dry, mucous membrane. Nonicteric sclerae. LUNGS: Few scattered crepitation. Decreased air entry at bases. HEART: Positive S1 and S2. ABDOMEN: Soft with mild generalized tenderness. No mass or organomegaly. No rebound tenderness or guarding. EXTREMITIES: Without significant clubbing, cyanosis or edema. NEUROLOGIC: No reported new neurological deficit. It has to be mentioned that the abdominal recent incision covered with clean dressing without reported bleeding or discharge. IMPRESSION: 1. Right-sided colon mass-like lesion with status post right hemicolectomy. 2. Re-exacerbation of peptic ulcer disease. 3. Known history of hypertension, hypothyroidism and osteoarthritis. SUGGESTIONS: 1. Continue current management. 2. Follow up on the pathology report, then Oncology-Hematology workup to follow. Ramesh Cramer MD
[2019-03-14] MEDS ORDERED: guaiFENesin 200 mg/10 ml Syrup UD PO PRN (12:17)
[2019-03-14] MEDS: guaiFENesin DM 200 mg-20 mg/10 ml UD PO PRN ×2 (12:28→21:17)
--- NOTE | 2019-03-14 14:08 | OP ---
PROCEDURE DATE: 03/12/2019 PREOPERATIVE DIAGNOSIS: . POSTOPERATIVE DIAGNOSIS: . PROCEDURE CARRIED OUT: Right colectomy. SURGEON: Bk Rizvi Jr., MD DONOR RELATIONS MANAGER: David Thompson DO TYPE OF ANESTHESIA: General. ANESTHESIA ADMINISTERED BY: Dr. Hinton. INDICATIONS: The patient is a 78-year-old woman admitted to the hospital with GI bleeding and subsequently found to have a tumor of the ascending colon. Biopsy was consistent with tubulovillous adenoma. OPERATIVE FINDINGS: There was no evidence of liver metastasis previous cholecystectomy. The uterus was in place and there was no evidence of intraabdominal metastasis. Mesentery is slightly thickened but no discrete lymph nodes. The rest of the intraoperative findings were unremarkable. DESCRIPTION OF PROCEDURE: The patient was given general anesthesia, intravenous antibiotics, and Venodyne boots were applied. A midline incision was carried out. The abdomen was explored. Colon was mobilized . The tumor resected with standard margin. A [id number] stapled anastomosis was carried out between the terminal ileum and the transverse colon. After completion of the anastomosis, the omentum was wrapped around this and the appropriate sutures placed in the rent and the mesentery closed. The abdomen was then closed running the sutures PDS and skin was closed with skin clips. BLOOD LOSS: Less than 100 mL. OPERATION CARRIED OUT: Right colectomy. Bk Rizvi Jr., MD cc: MD Ramesh Zuñiga MD
--- NOTE | 2019-03-14 15:27 | PN ---
DATE: 03/13/2019 SUBJECTIVE: The patient underwent right hemicolectomy for tubulovillous adenoma of the right colon. She denies any chest pain or shortness of breath. PHYSICAL EXAMINATION: VITAL SIGNS: Blood pressure 131/103, heart rate 105, temperature 98.5, and respirations 16. HEENT: Normocephalic. CHEST: Clear. HEART: S1 and S2, regular. EXTREMITIES: No edema. LABORATORY DATA: Today's hemoglobin and hematocrit 13.1 and 38.6, white count 11.6 and platelet count 239,000. Today's SMA-7 is within normal limits except for sodium of 130. Today's magnesium is 1.4. ASSESSMENT: 1. Status post right hemicolectomy for large tubulovillous adenoma. 2. Uncontrolled hypertension. 3. Hyponatremia. 4. Hypomagnesemia. 5. Hypothyroidism. RECOMMENDATIONS: Continue Cozaar 100 mg once a day and Synthroid 137 mcg once a day and 40 mg daily. Continue Lopressor 60 mg twice a day. I will start magnesium sulfate replacement and obtain postoperative 12-lead EKG. Jan Arredondo MD
--- NOTE | 2019-03-14 22:30 | CP.PCM.PN ---
Subjective - Date & Time of Evaluation Date of Evaluation: 03/14/19 Time of Evaluation: 13:00 - Subjective Subjective: dictated Objective - Vital Signs/Intake and Output Vital Signs (last 24 hours): Temp Pulse Resp BP Pulse Ox 97.8 F 74 20 148/76 96 03/14/19 15:00 03/14/19 15:00 03/14/19 15:00 03/14/19 15:00 03/14/19 15:00 - Medications Medications: Current Medications Enoxaparin Sodium (Lovenox) 40 mg SC DAILY [facility] Last Admin: 03/14/19 10:15 Dose: 40 mg Guaifenesin/Dextromethorphan (Robitussin Dm) 10 ml PO Q4H PRN PRN Reason: Cough and congestion Last Admin: 03/14/19 21:17 Dose: 10 ml Hydromorphone HCl (Dilaudid) 1 mg IVP Q4H PRN PRN Reason: Pain, severe (8-10) Last Admin: 03/12/19 19:00 Dose: 1 mg BUPIVACAINE 0.125%/0.9% NACL (Bupivacaine-Ns 0.125% On-Q Disc Ruler Operator) 600 mls @ 4 mls/hr IJ ONCE ONE Stop: 03/18/19 20:19 Last Admin: 03/12/19 17:00 Dose: 4 mls/hr Labetalol HCl (Trandate) 5 mg IVP Q5MIN PRN PRN Reason: Pain, moderate (4-7) Last Admin: 03/12/19 15:02 Dose: 5 mg Levothyroxine Sodium (Levothroid) 137 mcg PO DAILY@0630 [facility] Last Admin: 03/14/19 06:25 Dose: 137 mcg Losartan Potassium (Cozaar) 100 mg PO DAILY [facility] Last Admin: 03/14/19 10:15 Dose: 100 mg Metoprolol Tartrate (Lopressor) 50 mg PO BID [facility] Last Admin: 03/14/19 17:47 Dose: 50 mg Ondansetron HCl (Zofran Inj) 4 mg IVP Q4 PRN PRN Reason: Nausea/Vomiting Last Admin: 03/12/19 08:48 Dose: 4 mg Pantoprazole Sodium (Protonix Inj) 40 mg IVP DAILY [facility] Last Admin: 03/14/19 10:15 Dose: 40 mg Sucralfate (Carafate Oral Susp) 1 gm PO BID [facility] Last Admin: 03/14/19 17:47 Dose: 1 gm - Labs Labs: 03/14/19 07:39 03/14/19 07:39 PT 11.7 SECONDS (9.7-12.2) 03/12/19 06:55 INR 1.1 03/12/19 06:55 APTT 39 SECONDS (21-34) H 03/12/19 06:55
--- NOTE | 2019-03-14 22:45 | PN ---
DATE: 03/14/2019 SUBJECTIVE: The patient denies any chest pain. PHYSICAL EXAMINATION: VITAL SIGNS: Blood pressure 148/76, heart rate 74, temperature 97.8, and respirations 20. HEENT: Normocephalic. Chest: Clear. HEART: S1, S2 regular. EXTREMITIES: No edema. LABORATORY DATA: Today's hemoglobin and hematocrit 15.1 and 38.7. White count and platelet count are within normal limits. SMA-7; sodium 131, potassium 3.7, chloride 94, CO2 of 30, glucose 107, BUN 7, and creatinine 0.9. DIAGNOSTIC DATA: Yesterday's EKG revealed sinus rhythm with poor R-wave progression. ASSESSMENT: 1. Status post right hemicolectomy for large tubulovillous adenoma. 2. Hypothyroidism. 3. Hypertension. 4. Hyponatremia. RECOMMENDATION: Continue Cozaar at 100 mg once a day, Synthroid at 137 mcg once a day, Lopressor 50 mg twice a day, Lovenox 40 mg subcutaneously once a day, Protonix 40 mg intravenously once a day. Discontinue the dietary sodium restriction. Jan Arredondo MD
--- NOTE | 2019-03-14 23:43 | PN ---
DATE: 03/14/2019 SUBJECTIVE: The patient is doing well postop. No distress. No nausea or vomiting. PHYSICAL EXAMINATION VITAL SIGNS: Blood pressure 148/76, pulse 74, respiratory rate 20, temperature 97.8. LUNGS: Bilaterally clear. CARDIOVASCULAR: S1, S2, regular. ABDOMEN: Soft. ASSESSMENT: 1. Colon mass, status post colectomy. 2. Hypertension. 3. Hyponatremia. PLAN: Continue to monitor the patient. Ruddy Dia MD
[2019-03-15 07:19] LABS: BASO # 0.1 K/uL (0.0-0.2); EOS # 0.4 K/uL (0.0-0.7); EOS % 4.1 % (0.0-4.0); HEMOGLOBIN 13.3 g/dL (11.0-16.0); LYMPH # 1.6 K/uL (1.0-4.3); LYMPH % 17.3 % (20.0-40.0); MEAN CELL VOLUME 92.7 fL (81.0-99.0); MEAN CORPUSCULAR HEMOGLOBIN 32.7 pg (27.0-31.0); MEAN CORPUSCULAR HGB CONC 35.3 g/dL (33.0-37.0); MEAN PLATELET VOLUME 7.6 fL (7.2-11.7); MONO # 0.6 K/uL (0.0-0.8); MONO % 6.4 % (0.0-10.0); NEUT # 6.7 K/uL (1.8-7.0); NEUT % 71.2 % (50.0-75.0); RBC 4.05 Mil/uL (3.80-5.20); RED CELL DISTRIBUTION WIDTH 14.3 % (11.5-14.5); WHITE BLOOD COUNT 9.4 K/uL (4.8-10.8)
[2019-03-15 07:39] LABS: ALB/GLOB RATIO 1.2 (1.0-2.1); ALBUMIN 3.4 g/dL (3.5-5.0); ALT/SGPT 15 U/L (9-52); AST/SGOT 30 U/L (14-36); BLOOD UREA NITROGEN 6 mg/dL (7-17); CALCIUM 9.3 mg/dl (8.6-10.4); GFR NON-AFRICAN AMERICAN > 60
[2019-03-15] MEDS ORDERED: Potassium Phosphate 15 MMOLE in Sodium Chloride 0.9% 250 ML IV ONE (09:00)
--- NOTE | 2019-03-15 10:59 | CP.PCM.PN ---
Subjective - Date & Time of Evaluation Date of Evaluation: 03/15/19 Time of Evaluation: 06:40 - Subjective Subjective: Patient seen and examined. No acute events over night. Denies nausea/vomiting. Reports passing flatus and having BM. Objective - Vital Signs/Intake and Output Vital Signs (last 24 hours): Temp Pulse Resp BP Pulse Ox 98 F 60 20 136/64 95 03/15/19 04:40 03/15/19 04:40 03/15/19 04:40 03/15/19 04:40 03/15/19 04:40 Intake and Output: 03/15/19 03/15/19 06:59 18:59 Output Total 50 Balance -50 - Medications Medications: Current Medications Enoxaparin Sodium (Lovenox) 40 mg SC DAILY [facility] Last Admin: 03/14/19 10:15 Dose: 40 mg Guaifenesin/Dextromethorphan (Robitussin Dm) 10 ml PO Q4H PRN PRN Reason: Cough and congestion Last Admin: 03/14/19 21:17 Dose: 10 ml Hydromorphone HCl (Dilaudid) 1 mg IVP Q4H PRN PRN Reason: Pain, severe (8-10) Last Admin: 03/12/19 19:00 Dose: 1 mg BUPIVACAINE 0.125%/0.9% NACL (Bupivacaine-Ns 0.125% On-Q Fire Tower Keeper) 600 mls @ 4 mls/hr IJ ONCE ONE Stop: 03/18/19 20:19 Last Admin: 03/12/19 17:00 Dose: 4 mls/hr Potassium Phosphate 15 mmole/ (Sodium Chloride) 255 mls @ 63 mls/hr IV ONCE ONE Stop: 03/15/19 13:02 Labetalol HCl (Trandate) 5 mg IVP Q5MIN PRN PRN Reason: Pain, moderate (4-7) Last Admin: 03/12/19 15:02 Dose: 5 mg Levothyroxine Sodium (Levothroid) 137 mcg PO DAILY@0630 [facility] Last Admin: 03/15/19 07:10 Dose: 137 mcg Losartan Potassium (Cozaar) 100 mg PO DAILY [facility] Last Admin: 03/14/19 10:15 Dose: 100 mg Metoprolol Tartrate (Lopressor) 50 mg PO BID [facility] Last Admin: 04/14/19 17:47 Dose: 50 mg Ondansetron HCl (Zofran Inj) 4 mg IVP Q4 PRN PRN Reason: Nausea/Vomiting Last Admin: 03/12/19 08:48 Dose: 4 mg Pantoprazole Sodium (Protonix Inj) 40 mg IVP DAILY [facility] Last Admin: 03/14/19 10:15 Dose: 40 mg Potassium Phos/Sodium Phos (Neutra-Phos) 1 pkt PO DAILY [facility] Stop: 03/17/19 10:01 Sucralfate (Carafate Oral Susp) 1 gm PO BID [facility] Last Admin: 03/14/19 17:47 Dose: 1 gm - Labs Labs: 03/15/19 07:10 03/15/19 07:10 PT 11.7 SECONDS (9.7-12.2) 03/12/19 06:55 INR 1.1 03/12/19 06:55 APTT 39 SECONDS (21-34) H 03/12/19 06:55 - Constitutional Appears: No Acute Distress - Head Exam Head Exam: NORMOCEPHALIC - Eye Exam Eye Exam: EOMI, Normal appearance - ENT Exam ENT Exam: Mucous Membranes Moist - Respiratory Exam Respiratory Exam: NORMAL BREATHING PATTERN - Cardiovascular Exam Cardiovascular Exam: +S1, +S2 - GI/Abdominal Exam GI & Abdominal Exam: Soft. absent: Distended, Firm, Guarding, Rigid, Tenderness - Neurological Exam Neurological Exam: Alert, Awake, Oriented x3 - Psychiatric Exam Psychiatric exam: Normal Mood - Skin Skin Exam: Dry, Intact, Warm Assessment and Plan - Assessment and Plan (Free Text) Assessment: 78 F with ascending colon mass found to be tubulovillious adenoma s/p right hemicolectomy POD#3 Plan: -Heart healthy diet -Pain control -Anti-emetic PRN -Monitor nereyda output -medical management as per primary -Encourage IS use -Encourage ambulation -Discussed with Dr. Dmitri Tyler PGY3
[2019-03-15] MEDS: Potassium & Sodium Phosphate PO SCH (11:00)
[2019-03-15] MEDS: Enoxaparin 40 mg Syringe SC SCH (11:01)
[2019-03-15] MEDS: Sucralfate 1 gm/10 ml Oral Susp UD PO SCH ×2 (11:02→17:13)
--- NOTE | 2019-03-15 18:58 | PN ---
DATE: 03/15/2019 SUBJECTIVE: The patient denies any chest pain. She is tolerating regular diet. PHYSICAL EXAMINATION: VITAL SIGNS: Blood pressure 156/64, heart rate 60, temperature 98, respirations 20. HEENT: Normocephalic. CHEST: Clear. HEART: S1, S2. Regular. EXTREMITIES: No edema. LABORATORY DATA: Today's SMA-7; sodium 131, potassium 4.3, chloride 96, CO2 of 28, glucose 104, BUN 6, creatinine 0.9. Today's hemoglobin, hematocrit, white count and platelet count are within normal limits. ASSESSMENT: 1. Hypertension. 2. Status post right hemicolectomy for tubulovillous adenoma. 3. Hyponatremia. 4. Hypoalbuminemia. RECOMMENDATION: Continue Cozaar at 100 mg once a day, Synthroid at 137 mcg once a day, Lopressor 50 mg twice a day, subcutaneous Lovenox is 40 mg once a day, Protonix 40 mg intravenously once a day, Neutra-Phos one packet daily and Robitussin-DM 10 mL every 4 hours as needed. Jan Arredondo MD
--- NOTE | 2019-03-15 23:46 | PN ---
DATE: 03/15/2019 LOCATION: 656, bed A. SUBJECTIVE: This is a 78-year-old female seen and examined in rounds with intermittent periods of nonproductive cough before, tolerating oral intake and passing gas with much less abdominal pain. The entire chart is reviewed including but not limited to most recent lab and radiology study results, current and the previous medication list, current and the previous medical events. The patient denied actual chest pain, palpitation or significant shortness of breath, having bowel movement as reported. The most recent lab results done today showed normal CBC. Sodium is still low 131 with phosphorus 1.9, low albumin 3.4, low total protein 6.2. On record, the official pathology report, postoperative still pending. PHYSICAL EXAMINATION: GENERAL: A 78-year-old female, afebrile with pulse of 66, respiratory rate 20-22, blood pressure 140/74. HEENT: Showed pale, dry oral mucoid membrane mildly, nonicteric sclerae. LUNGS: Few scattered crepitation. Decreased air entry at bases. HEART: Positive S1 and S2. ABDOMEN: Soft with mild generalized tenderness. The site of recently done surgery covered with clean dressing. EXTREMITIES: Without significant clubbing, cyanosis or edema. NEUROLOGIC: No reported neurological deficits, sensory or motor. IMPRESSION: 1. Right-sided mass-like lesion status post right hemicolectomy. 2. Peptic ulcer disease. 3. Hyponatremia. 4. Known history of hypothyroidism, hypertension and osteoarthritis. SUGGESTIONS: 1. Continue current management. 2. Follow up on pathology report. 3. The patient will need followup colonoscopy after one year. Ramesh Cramer MD
[2019-03-16 03:26] VITALS: RESP 20
[2019-03-16] MEDS ORDERED: Simethicone 80 mg Chewtab PO STA (04:01)
--- NOTE | 2019-03-16 04:15 | CP.PCM.PN ---
Subjective - Date & Time of Evaluation Date of Evaluation: 03/15/19 Time of Evaluation: 07:40 - Subjective Subjective: dict Objective - Vital Signs/Intake and Output Vital Signs (last 24 hours): Temp Pulse Resp BP Pulse Ox 98.7 F 66 20 141/70 98 03/15/19 23:15 03/15/19 23:15 03/15/19 23:15 03/15/19 23:15 03/15/19 23:15 Intake and Output: 03/15/19 03/16/19 18:59 06:59 Intake Total 350 Output Total 60 Balance 290 - Medications Medications: Current Medications Enoxaparin Sodium (Lovenox) 40 mg SC DAILY [facility] Last Admin: 03/15/19 11:01 Dose: 40 mg Guaifenesin/Dextromethorphan (Robitussin Dm) 10 ml PO Q4H PRN PRN Reason: Cough and congestion Last Admin: 03/14/19 21:17 Dose: 10 ml Hydromorphone HCl (Dilaudid) 1 mg IVP Q4H PRN PRN Reason: Pain, severe (8-10) Last Admin: 03/12/19 19:00 Dose: 1 mg BUPIVACAINE 0.125%/0.9% NACL (Bupivacaine-Ns 0.125% On-Q Mica Machine Operator) 600 mls @ 4 mls/hr IJ ONCE ONE Stop: 03/18/19 20:19 Last Admin: 03/12/19 17:00 Dose: 4 mls/hr Labetalol HCl (Trandate) 5 mg IVP Q5MIN PRN PRN Reason: Pain, moderate (4-7) Last Admin: 03/12/19 15:02 Dose: 5 mg Levothyroxine Sodium (Levothroid) 137 mcg PO DAILY@0630 [facility] Last Admin: 03/15/19 07:10 Dose: 137 mcg Losartan Potassium (Cozaar) 100 mg PO DAILY [facility] Last Admin: 03/15/19 11:00 Dose: 100 mg Metoprolol Tartrate (Lopressor) 50 mg PO BID [facility] Last Admin: 03/15/19 17:14 Dose: 50 mg Ondansetron HCl (Zofran Inj) 4 mg IVP Q4 PRN PRN Reason: Nausea/Vomiting Last Admin: 03/12/19 08:48 Dose: 4 mg Pantoprazole Sodium (Protonix Inj) 40 mg IVP DAILY [facility] Last Admin: 03/15/19 11:02 Dose: 40 mg Potassium Phos/Sodium Phos (Neutra-Phos) 1 pkt PO DAILY [facility] Stop: 03/17/19 10:01 Last Admin: 03/15/19 11:00 Dose: 1 pkt Sucralfate (Carafate Oral Susp) 1 gm PO BID [facility] Last Admin: 03/15/19 17:13 Dose: 1 gm - Labs Labs: 03/15/19 07:10 03/15/19 07:10 PT 11.7 SECONDS (9.7-12.2) 03/12/19 06:55 INR 1.1 03/12/19 06:55 APTT 39 SECONDS (21-34) H 03/12/19 06:55
[2019-03-16 07:59] LABS: BASO # 0.1 K/uL (0.0-0.2); BASO % 0.9 % (0.0-2.0); EOS # 0.3 K/uL (0.0-0.7); EOS % 3.4 % (0.0-4.0); HEMOGLOBIN 13.9 g/dL (11.0-16.0); LYMPH # 1.2 K/uL (1.0-4.3); LYMPH % 13.1 % (20.0-40.0); MEAN CELL VOLUME 91.7 fL (81.0-99.0); MEAN CORPUSCULAR HEMOGLOBIN 31.8 pg (27.0-31.0); MEAN CORPUSCULAR HGB CONC 34.7 g/dL (33.0-37.0); MEAN PLATELET VOLUME 7.7 fL (7.2-11.7); MONO # 0.7 K/uL (0.0-0.8); MONO % 7.6 % (0.0-10.0); NEUT # 6.6 K/uL (1.8-7.0); RBC 4.37 Mil/uL (3.80-5.20); RED CELL DISTRIBUTION WIDTH 14.6 % (11.5-14.5); WHITE BLOOD COUNT 8.8 K/uL (4.8-10.8)
--- NOTE | 2019-03-16 08:03 | CP.PCM.PN ---
Subjective - Date & Time of Evaluation Date of Evaluation: 03/16/19 Time of Evaluation: 07:51 - Subjective Subjective: Surgery Progress Note for Dr. Rizvi 78F seen and evaluated at bedside this morning. No acute events events overnight. No complaints this morning. Patient voiding, passing gas, and having BM. Denies f/c, n/v/d, SOB, CP, or urinary symptoms. Objective - Vital Signs/Intake and Output Vital Signs (last 24 hours): Temp Pulse Resp BP Pulse Ox 97.9 F 76 20 120/79 98 03/16/19 06:35 03/16/19 06:35 03/16/19 06:35 03/16/19 06:35 03/16/19 06:35 Intake and Output: 03/16/19 03/16/19 06:59 18:59 Intake Total 350 Output Total 80 Balance 270 - Medications Medications: Current Medications Enoxaparin Sodium (Lovenox) 40 mg SC DAILY [facility] Last Admin: 03/15/19 11:01 Dose: 40 mg Guaifenesin/Dextromethorphan (Robitussin Dm) 10 ml PO Q4H PRN PRN Reason: Cough and congestion Last Admin: 03/14/19 21:17 Dose: 10 ml Hydromorphone HCl (Dilaudid) 1 mg IVP Q4H PRN PRN Reason: Pain, severe (8-10) Last Admin: 03/12/19 19:00 Dose: 1 mg BUPIVACAINE 0.125%/0.9% NACL (Bupivacaine-Ns 0.125% On-Q Food Mixer Assembler) 600 mls @ 4 mls/hr IJ ONCE ONE Stop: 03/18/19 20:19 Last Admin: 03/12/19 17:00 Dose: 4 mls/hr Labetalol HCl (Trandate) 5 mg IVP Q5MIN PRN PRN Reason: Pain, moderate (4-7) Last Admin: 03/12/19 15:02 Dose: 5 mg Levothyroxine Sodium (Levothroid) 137 mcg PO DAILY@0630 [facility] Last Admin: 03/16/19 05:35 Dose: 137 mcg Losartan Potassium (Cozaar) 100 mg PO DAILY [facility] Last Admin: 03/15/19 11:00 Dose: 100 mg Metoprolol Tartrate (Lopressor) 50 mg PO BID [facility] Last Admin: 03/15/19 17:14 Dose: 50 mg Ondansetron HCl (Zofran Inj) 4 mg IVP Q4 PRN PRN Reason: Nausea/Vomiting Last Admin: 03/12/19 08:48 Dose: 4 mg Pantoprazole Sodium (Protonix Inj) 40 mg IVP DAILY [facility] Last Admin: 03/15/19 11:02 Dose: 40 mg Potassium Phos/Sodium Phos (Neutra-Phos) 1 pkt PO DAILY [facility] Stop: 03/17/19 10:01 Last Admin: 03/15/19 11:00 Dose: 1 pkt Sucralfate (Carafate Oral Susp) 1 gm PO BID [facility] Last Admin: 03/15/19 17:13 Dose: 1 gm - Labs Labs: 03/15/19 07:10 03/15/19 07:10 PT 11.7 SECONDS (9.7-12.2) 03/12/19 06:55 INR 1.1 03/12/19 06:55 APTT 39 SECONDS (21-34) H 03/12/19 06:55 - Constitutional Appears: Non-toxic, No Acute Distress - Head Exam Head Exam: ATRAUMATIC, NORMAL INSPECTION, NORMOCEPHALIC - Eye Exam Eye Exam: EOMI - ENT Exam ENT Exam: Mucous Membranes Moist - Respiratory Exam Respiratory Exam: NORMAL BREATHING PATTERN. absent: Wheezes, Respiratory Distress - GI/Abdominal Exam GI & Abdominal Exam: Soft, Normal Bowel Sounds. absent: Tenderness - Neurological Exam Neurological Exam: Alert, Awake, Oriented x3 - Psychiatric Exam Psychiatric exam: Normal Affect, Normal Mood - Skin Skin Exam: Dry, Intact, Normal Color, Warm Assessment and Plan - Assessment and Plan (Free Text) Assessment: 78F w/ ascending colon mass found to be tubulovillious adenoma s/p right hemicolectomy POD#4 Plan: Continue Heart healthy diet Analgesics and antiemetics Will remove nereyda drain today Encourage IS use Encourage ambulation, OOBTC Cleared for discharge from a surgical standpoint Follow up in clinic with Dr. Rizvi in 2 weeks. Please call to make an appointment Macho Saleem PGY1
[2019-03-16 08:14] LABS: BLOOD UREA NITROGEN 6 mg/dL (7-17); CALCIUM 9.5 mg/dl (8.6-10.4); GFR NON-AFRICAN AMERICAN > 60
[2019-03-16 08:57] VITALS: BP 131/74; PULSE 82; TEMP 98.1; O2SAT 96
[2019-03-16] MEDS: Sucralfate 1 gm/10 ml Oral Susp UD PO SCH (10:21)
[2019-03-16] MEDS: Potassium & Sodium Phosphate PO SCH (10:22)
[2019-03-16] MEDS: Enoxaparin 40 mg Syringe SC SCH (10:22)
--- NOTE | 2019-03-16 11:29 | PN ---
DATE: 03/16/2019 SUBJECTIVE: The patient is for discharge. The patient is afebrile. No shortness of breath. No nausea or vomiting. The patient has been seen by Surgery. The patient's sodium is corrected. PHYSICAL EXAMINATION: VITAL SIGNS: Blood pressure is 158/72, pulse 58, respiratory rate 18, temperature 98. LUNGS: Clear. CARDIOVASCULAR: S1, S2, regular. ABDOMEN: Soft. ASSESSMENT: 1. Colon mass, status post colectomy. 2. Hypertension. 3. Hyponatremia. PLAN: Continue current medications. Monitor the patient. Ruddy Dia MD
[2019-03-16] MEDS ORDERED: Magnesium Oxide 400 mg Tab UD PO STA (12:00)
[2019-03-16] MEDS: Magnesium Sulfate 1 gm in D5W 1 GM/100 ML BAG IVPB SCH ×3 (12:23→14:05)
--- NOTE | 2019-03-16 12:31 | CP.PCM.PN ---
Subjective - Date & Time of Evaluation Date of Evaluation: 03/16/19 Time of Evaluation: 11:00 - Subjective Subjective: Patient seen today , denies any abdominal pain, N/V. tolerating diet , reported -+ BM, OOB ambulating the hallway with physical therapy A FEBRILE s/p - right hemicolectomy POD#4 labs and vss - reviewed - mag- 1.3 and replaced with magnesium IV Objective - Vital Signs/Intake and Output Vital Signs (last 24 hours): Temp Pulse Resp BP Pulse Ox 98.1 F 82 20 131/74 96 03/16/19 07:00 03/16/19 07:00 03/16/19 07:00 03/16/19 07:00 03/16/19 07:00 Intake and Output: 03/16/19 03/16/19 06:59 18:59 Intake Total 350 Output Total 80 Balance 270 - Medications Medications: Current Medications Enoxaparin Sodium (Lovenox) 40 mg SC DAILY [facility] Last Admin: 03/16/19 10:22 Dose: 40 mg Guaifenesin/Dextromethorphan (Robitussin Dm) 10 ml PO Q4H PRN PRN Reason: Cough and congestion Last Admin: 03/14/19 21:17 Dose: 10 ml Hydromorphone HCl (Dilaudid) 1 mg IVP Q4H PRN PRN Reason: Pain, severe (8-10) Last Admin: 03/12/19 19:00 Dose: 1 mg BUPIVACAINE 0.125%/0.9% NACL (Bupivacaine-Ns 0.125% On-Q Activities Director Scouting) 600 mls @ 4 mls/hr IJ ONCE ONE Stop: 03/18/19 20:19 Last Admin: 03/12/19 17:00 Dose: 4 mls/hr Magnesium Sulfate/Dextrose (Magnesium Sulfate 1 Gm/100 Ml D5w) 1 gm in 100 mls @ 300 mls/hr IVPB Q30M [facility] Stop: 03/16/19 13:49 Last Admin: 03/16/19 12:23 Dose: 300 mls/hr Labetalol HCl (Trandate) 5 mg IVP Q5MIN PRN PRN Reason: Pain, moderate (4-7) Last Admin: 03/12/19 15:02 Dose: 5 mg Levothyroxine Sodium (Levothroid) 137 mcg PO DAILY@0630 [facility] Last Admin: 03/16/19 05:35 Dose: 137 mcg Losartan Potassium (Cozaar) 100 mg PO DAILY [facility] Last Admin: 03/16/19 10:22 Dose: 100 mg Metoprolol Tartrate (Lopressor) 50 mg PO BID [facility] Last Admin: 03/16/19 10:22 Dose: 50 mg Ondansetron HCl (Zofran Inj) 4 mg IVP Q4 PRN PRN Reason: Nausea/Vomiting Last Admin: 03/12/19 08:48 Dose: 4 mg Pantoprazole Sodium (Protonix Inj) 40 mg IVP DAILY [facility] Last Admin: 03/16/19 10:22 Dose: 40 mg Potassium Phos/Sodium Phos (Neutra-Phos) 1 pkt PO DAILY [facility] Stop: 03/17/19 10:01 Last Admin: 03/16/19 10:22 Dose: 1 pkt Sucralfate (Carafate Oral Susp) 1 gm PO BID [facility] Last Admin: 03/16/19 10:21 Dose: 1 gm - Labs Labs: 03/16/19 07:49 03/16/19 07:49 PT 11.7 SECONDS (9.7-12.2) 03/12/19 06:55 INR 1.1 03/12/19 06:55 APTT 39 SECONDS (21-34) H 03/12/19 06:55 - Constitutional Appears: Well, No Acute Distress - GI/Abdominal Exam GI & Abdominal Exam: Soft, Normal Bowel Sounds - Neurological Exam Neurological Exam: Alert, Awake, Oriented x3 Assessment and Plan - Assessment and Plan (Free Text) Assessment: A/P 78 YR OLD FEMAL EWITH PMHX OF HTN, Hyperlipidemia, Hypothyroidism, presents to the emergency department with complaints of epigastric and reflux pain. s/p colonoscopy- found mass in the proximal ascending colon s/p right hemicolectomy POD#4 patient tolerating diet and , + BM drain removed today and cleared by surgical team for discharge an df/u with Dr. Campa office in 2 weeks todays labs reviewed- HGB STABLE mag - 1.3 and replaced with IV D/w Dr. Dia, cleared fro discharge home today and f/u with Dr. Dia office in 1 week discharge plan discussed with patient , and daughter at bed side who und erstands and agrees with plan RX given upon discharge
--- NOTE | 2019-03-16 15:30 | CARD ---
APPROVED REPORT Date of service: 03/13/2019 EKG Measurement Heart [id number] <Conclusion> Normal sinus rhythm Cannot rule out Anterior infarct, age undetermined Abnormal ECG
--- NOTE | 2019-03-16 15:44 | CARD ---
APPROVED REPORT Date of service: 03/06/2019 EKG Measurement Heart [id number] <Conclusion> Normal sinus rhythm Normal ECG
--- NOTE | 2019-03-16 17:23 | PN ---
DATE: 03/16/2019 SUBJECTIVE: The patient denies chest pain and discharge was delayed because of the patient's worsening hyponatremia. The patient denies any dizziness or weakness. PHYSICAL EXAMINATION: VITAL SIGNS: Blood pressure 101/74, heart rate 82, temperature 98.1, respirations 20. HEENT: Normocephalic. CHEST: Clear. HEART: S1, S2. Regular. EXTREMITIES: No edema. LABORATORY DATA: Today's SMA-7: Sodium 129, potassium 3.8, chloride 98, CO2 of 25, glucose 116, BUN 6, creatinine 0.9. Today's hemoglobin, hematocrit, white count and platelet count are within normal limits. ASSESSMENT: 1. Hypertension. 2. Hypothyroidism. 3. Status post right hemicolectomy for tubulovillous adenoma. 4. Hyponatremia. 5. Hypomagnesemia. The patient's magnesium level is 1.3. RECOMMENDATION: Continue Cozaar at 100 mg daily, Synthroid 137 mcg daily, Lopressor 50 mg twice a day. The patient did receive magnesium sulfate replacement for her hypomagnesemia today. Jan Arredondo MD
--- NOTE | 2019-03-16 20:42 | PN ---
DATE: 03/16/2019 LOCATION: Room 656, bed A. SUBJECTIVE: This is a 78-year-old female, seen and examined early in rounds today with the staff in the floor without any significant clinical changes with complaint of mild generalized weakness but tolerating oral intake. The patient is somewhat ambulating but with excessive amount of gas production and mild abdominal distention, no reported active bleeding, chest pain or palpitation. The entire chart is reviewed including but not limited to the most recent lab and radiology study results, current and the previous medication list, current and the previous medical events. Today's lab results showed normal CBC, but sodium of 129 with low BUN and normal creatinine, glucose of 116, magnesium 1.3, and low total protein. PHYSICAL EXAMINATION: GENERAL: A 78-year-old female, awake, alert, oriented. VITAL SIGNS: Afebrile with pulse of 80, respiratory rate 20-22, blood pressure 124/72. HEENT: Showed pale, dry oral mucous membrane. Nonicteric sclerae. LUNGS: Few scattered crepitation. Decreased air entry at bases. HEART: Positive S1 and S2. ABDOMEN: Soft with slight generalized tenderness, especially at the site of the surgery but no mass or organomegaly. No rebound tenderness or guarding. EXTREMITIES: Without significant clubbing, cyanosis or edema. NEUROLOGIC: No reported new neurological deficits, sensory or motor. On record, official pathology report of the left hemicolectomy is still pending. IMPRESSION: 1. Status post right hemicolectomy. 2. Colonoscopy, status post polypectomies. 3. Peptic ulcer disease. 4. Electrolyte imbalance with hyponatremia. 5. Known history of hypothyroidism, osteoarthritis, hypertension. SUGGESTIONS: 1. Continue current management. 2. The patient needs followup colonoscopy after 1 year post discharge. 3. Further recommendation to follow. Ramesh Cramer MD
--- NOTE | 2019-03-16 22:38 | CP.PCM.DIS ---
Provider - Provider Date of Admission: 03/07/19 00:10 Attending physician: Ruddy Dia MD Consults: 03/07/19 07:20 Gastroenterology Consult Routine Comment: Consulting Provider: Ramesh Murray Consulting Physician: Ramesh Murray Reason for Consult: gastritis 03/10/19 14:06 General Surgery Consult Routine Comment: COLON CA Consulting Provider: Bk Rizvi Jr. Consulting Physician: Bk Rizvi Jr. Reason for Consult: COLON CA 03/11/19 13:36 Cardiology Consult Routine Comment: Consulting Provider: Jan Arredondo Consulting Physician: Jan Arredondo Reason for Consult: pre op Time Spent in preparation of Discharge (in minutes): 30 Hospital Course - Lab Results Lab Results: Micro Results 03/13/19 14:19 Naris MRSA Culture - Final MRSA NOT DETECTED 03/13/19 06:21 Naris MRSA Culture (Admit) - Final MRSA NOT DETECTED Most Recent Lab Values WBC 8.8 K/uL (4.8-10.8) 03/16/19 07:49 RBC 4.37 Mil/uL (3.80-5.20) 03/16/19 07:49 Hgb 13.9 g/dL (11.0-16.0) 03/16/19 07:49 Hct 40.0 % (34.0-47.0) 03/16/19 07:49 MCV 91.7 fL (81.0-99.0) 03/16/19 07:49 MCH 31.8 pg (27.0-31.0) H 03/16/19 07:49 MCHC 34.7 g/dL (33.0-37.0) 03/16/19 07:49 RDW 14.6 % (11.5-14.5) H 03/16/19 07:49 Plt Count 282 K/uL (130-400) 03/16/19 07:49 MPV 7.7 fL (7.2-11.7) 03/16/19 07:49 Neut % (Auto) 75.0 % (50.0-75.0) 03/16/19 07:49 Lymph % (Auto) 13.1 % (20.0-40.0) L 03/16/19 07:49 Meigs % (Auto) 7.6 % (0.0-10.0) 03/16/19 07:49 Eos % (Auto) 3.4 % (0.0-4.0) 03/16/19 07:49 Baso % (Auto) 0.9 % (0.0-2.0) 03/16/19 07:49 Neut # (Auto) 6.6 K/uL (1.8-7.0) 03/16/19 07:49 Lymph # (Auto) 1.2 K/uL (1.0-4.3) 03/16/19 07:49 Meigs # (Auto) 0.7 K/uL (0.0-0.8) 03/16/19 07:49 Eos # (Auto) 0.3 K/uL (0.0-0.7) 03/16/19 07:49 Baso # (Auto) 0.1 K/uL (0.0-0.2) 03/16/19 07:49 PT 11.7 SECONDS (9.7-12.2) 03/12/19 06:55 INR 1.1 03/12/19 06:55 APTT 39 SECONDS (21-34) H 03/12/19 06:55 Sodium 129 mmol/L (132-148) L 03/16/19 07:49 Potassium 3.8 mmol/L (3.6-5.2) 03/16/19 07:49 Chloride 98 mmol/L (98-107) 03/16/19 07:49 Carbon Dioxide 25 mmol/L (22-30) 03/16/19 07:49 Anion Gap 11 (10-20) 03/16/19 07:49 BUN 6 mg/dL (7-17) L 03/16/19 07:49 Creatinine 0.9 mg/dL (0.7-1.2) 03/16/19 07:49 Est GFR ( Amer) > 60 03/16/19 07:49 Est GFR (Non-Af Amer) > 60 03/16/19 07:49 Random Glucose 116 mg/dL (65-105) H 03/16/19 07:49 Serum Osmolality 260 mosm/kg (272-300) L 03/06/19 22:40 Calcium 9.5 mg/dl (8.6-10.4) 03/16/19 07:49 Phosphorus 2.9 mg/dL (2.5-4.5) 03/16/19 07:49 Magnesium 1.3 mg/dL (1.6-2.3) L 03/16/19 07:49 Total Bilirubin 1.2 mg/dL (0.2-1.3) 03/15/19 07:10 AST 30 U/L (14-36) 03/15/19 07:10 ALT 15 U/L (9-52) 03/15/19 07:10 Alkaline Phosphatase 68 U/L (38-126) 03/15/19 07:10 Troponin I < 0.0120 ng/mL (0.00-0.120) 03/06/19 21:42 Total Protein 6.2 g/dL (6.3-8.3) L 03/15/19 07:10 Albumin 3.4 g/dL (3.5-5.0) L 03/15/19 07:10 Globulin 2.7 gm/dL (2.2-3.9) 03/15/19 07:10 Albumin/Globulin Ratio 1.2 (1.0-2.1) 03/15/19 07:10 Lipase 94 U/L (23-300) 03/06/19 21:42 Carcinoembryonic Ag 1.9 ng/mL (0-3.0) 03/07/19 11:51 CA 19-9 Antigen 36.9 U/mL (0-37) 03/07/19 11:51 CA 125 Antigen 7.1 U/mL (0-35) 03/07/19 11:51 Urine Osmolality 562 mosm/kg (300-1000) 03/06/19 22:37 Ur Random Sodium 156 mmol/L 03/06/19 22:37 Blood Type O POSITIVE 03/12/19 06:53 Antibody Screen Negative 03/12/19 06:53 Discharge Exam - Head Exam Head Exam: ATRAUMATIC, NORMAL INSPECTION, NORMOCEPHALIC Discharge Plan - Discharge Medications Prescriptions: Losartan [Cozaar] 100 mg PO DAILY #30 tab Levothyroxine Sodium 137 mcg PO DAILY #30 tablet Metoprolol Tartrate [Lopressor] 50 mg PO BID #30 tab Walker [Rolling Walker] 1 dev XX PRN #1 dev - Follow Up Plan Condition: STABLE Disposition: HOME/ ROUTINE Instructions: Heart Healthy Diet, Dehydration, Adult (DC), Gastritis (DC), Hyponatremia (DC), Losartan, Metoprolol, How to Use a Walker Additional Instructions: Please follow up with Dr. Dia office in 1 week ( follow up visit-needs lab work ) Please follow up with Dr. Rizvi office in 2 weeks - call and make appointment Please continue medication as per medication reconciliation Por favor james un seguimiento con la oficina del Dr. Dia en 1 semana (seguimiento del trabajo de laboratorio de necesidades) Pngase en contacto con la oficina del Dr. Rizvi en 2 semanas; llame y james mitchell kati Por favor contine la medicacin segn la conciliacin de la medicacin Referrals: Ramesh Murray [Staff Provider] - Jan Arredondo MD [Staff Provider] - Ruddy Dia MD [Staff Provider] - Bk Rizvi Jr., MD [Staff Provider] -
== END 2019-03-16 15:36 | disposition home or self-care (01) | DRG 330 ==
LOC: C.ER 20:38 → C.9E 03-07 00:10 → C.3T 03-07 00:40 → C.9I 03-12 16:53 → C.6T 03-13 12:31
PROVIDERS: ADMIT Internal Medicine; ATTEND Internal Medicine
PROC: 0DB68ZX Excision of Stomach, Via Natural or Artificial Opening Endoscopic, Diagnostic (ICD-10-PCS; 2019-03-08)
PROC: 0DBK8ZX Excision of Ascending Colon, Via Natural or Artificial Opening Endoscopic, Diagnostic (ICD-10-PCS; 2019-03-09)
PROC: 0DTK0ZZ Resection of Ascending Colon, Open Approach (ICD-10-PCS; principal; 2019-03-12 11:30)
DX: D12.2 Benign neoplasm of ascending colon (principal); E87.1 Hypo-osmolality and hyponatremia; K27.3 Acute peptic ulcer, site unspecified, without hemorrhage or perforation; E03.9 Hypothyroidism, unspecified; K29.50 Unspecified chronic gastritis without bleeding; K29.00 Acute gastritis without bleeding; E86.0 Dehydration; E11.65 Type 2 diabetes mellitus with hyperglycemia; E83.42 Hypomagnesemia; I10 Essential (primary) hypertension; E78.5 Hyperlipidemia, unspecified; K44.9 Diaphragmatic hernia without obstruction or gangrene; K57.10 Diverticulosis of small intestine without perforation or abscess without bleeding; Z90.49 Acquired absence of other specified parts of digestive tract; D64.9 Anemia, unspecified